=== PATIENT | female | born 1935 | race African-American/Black ===

== ENCOUNTER 2018-04-15 00:38 | Emergency (ER) | payer OTHER ==
[~2018-04-15] VITALS: Ht 157.5 cm; Wt 59.0 kg
[~2018-04-15 00:38] MED LIST: CARI-277; CLON1TAB4; GABA100C; ISOS20TA56; METO-158; MIRT30TA3; MYCO360T; NITR0.4S31 SL; NOR10T; OMEP20TA44 OR; PLAVIX PO; PRED5PAK8; RAMI5CAP40; RANI-226; SIMV40TA96; TACR5CAP3; TOLT4CAP12 OR; VALS40TA2 OR
[2018-04-15 01:10] LABS: Hemoglobin 8.3 g/dL (12.2-16.2)
[2018-04-15 01:12] LABS: Basophils # (auto) 0.1 uL; Basophils % (auto) 0.8 % (0.0-2.0); Eosinophils # (auto) 0.1 uL; Eosinophils % (auto) 0.6 % (0.0-7.0); Hematocrit 27.3 % (36.0-46.0); Lymphocytes # (auto) 2.3 uL; Mean Corpuscular Hemoglobin 27.7 pg (28.0-32.0); Mean Corpuscular Hgb Conc. 30.3 g/dL (32.0-36.0); Mean Corpuscular Volume 91.5 fL (80.0-100.0); Monocytes % (auto) 10.7 % (0.0-12.0); Neutrophils # (auto) 6.1 uL; Neutrophils % (auto) 63.9 % (37.0-80.0); Platelet Count (auto) 269 10^3/uL (140-450); Red Blood Cells 2.99 10^6/uL (4.0-5.20); Red Cell Distribution Width 19.5 % (11.8-14.3); White Blood Cell 9.5 10^3/uL (4.4-10.8)
[2018-04-15 01:24] LABS: INR 1.07 (0.9-1.15); Partial Thromboplastin Time 21.7 sec (23.78-33.04); Prothrombin Time 11.4 sec (9.27-12.13)
[2018-04-15 01:27] LABS: Alanine Aminotransferase 10 U/L (13-56); Albumin 3.3 g/dL (3.4-5.0); Anion Gap 12 (5-15); Aspartate Aminotransferase 11 U/L (15-37); Blood Alcohol < 3.0 mg/dL (0-5); Blood Urea Nitrogen 61 mg/dL (7-18); Calcium 9.6 mg/dL (8.5-10.1); Carbon Dioxide 21 mmol/L (21-32); Chloride 119 mmol/L (98-107); GFR African American 13 mL/min; GFR Non-African American 11 mL/min; Glucose 86 mg/dL (74-106); Potassium 4.5 mmol/L (3.5-5.1); Sodium 152 mmol/L (136-145)
[2018-04-15 01:29] LABS: Alkaline Phosphatase 51 U/L (45-117); Bilirubin, Total 0.4 mg/dL (0.2-1.0)
[2018-04-15 02:37] LABS: Urine Bacteria MANY /hpf (None Seen); Urine Blood 1+ /uL (Negative); Urine Mucus FEW (None Seen); Urine WBC 935 /hpf (0 - 5); Urine WBC Clumps PRESENT /hpf (None Seen)
[2018-04-15] MEDS ORDERED: cefTRIAXone 1GM/10ml IVPUSH 10 ML IV ONE (03:45)
[2018-04-15] MEDS ORDERED: SODIUM CHLORIDE 0.9% 1,000 ML IV ONE (03:45)
[2018-04-15 05:56] VITALS: BP 140/90
== END 2018-04-15 06:12 | disposition short-term general hospital (02) ==
LOC: EDBD 00:38 → ER 00:45
DX: R41.82 Altered mental status, unspecified (principal); N39.0 Urinary tract infection, site not specified; E86.0 Dehydration; D64.9 Anemia, unspecified; I12.9 Hypertensive chronic kidney disease with stage 1 through stage 4 chronic kidney disease, or unspecified chronic kidney disease; N18.9 Chronic kidney disease, unspecified; I25.810 Atherosclerosis of coronary artery bypass graft(s) without angina pectoris; Z90.49 Acquired absence of other specified parts of digestive tract
CPT/HCPCS: 36415; 36600; 51702; 70450; 71045; 80053; 80320; 81001; 82140; 82805; 83605; 83880; 85025; 85610; 85730; 86141; 93005; 96361; 96374; 99291; J0696

== ENCOUNTER 2020-10-18 15:19 | Inpatient (IN) | payer OTHER ==
[~2020-10-18] VITALS: Ht 160 cm; Wt 40.7 kg
[~2020-10-18 15:19] MED LIST changes: +CLON-853; -CLON1TAB4; +ISOS20TA5; -ISOS20TA56; +MIRT1TAB39; -MIRT30TA3; +SIMV40TA2; -SIMV40TA96; +TOLT4CAP OR; -TOLT4CAP12 OR
[2020-10-18] MEDS ORDERED: dilTIAZem 25 MG/5 ML VIAL IV ONE ×2 (15:27→15:30)
[2020-10-18] MEDS: dilTIAZem 125mg/125ml BAG KIT 100 ML IV SCH (15:35)
[2020-10-18 16:08] LABS: Basophils # (auto) 0 10 ^3/uL (0-0.2); Basophils % (auto) 0.4 % (0.0-2.0); Eosinophils # (auto) 0 10 ^3/uL (0-0.8); Eosinophils % (auto) 0.3 % (0.0-7.0); Hematocrit 30.2 % (36.0-46.0); Hemoglobin 9.7 g/dL (12.2-16.2); Lymphocytes # (auto) 0.9 10 ^3/uL (0.4-5.4); Lymphocytes % (auto) 10.2 % (10.0-50.0); Mean Corpuscular Hemoglobin 30.2 pg (28.0-32.0); Mean Corpuscular Hgb Conc. 32.2 g/dL (32.0-36.0); Mean Corpuscular Volume 93.8 fL (80.0-100.0); Monocytes # (auto) 0.2 10 ^3/uL (0-1.3); Neutrophils # (auto) 7.3 10 ^3/uL (1.6-8.6); Neutrophils % (auto) 87.1 % (37.0-80.0); Nucleated Red Blood Cells % 0.1 %; Red Blood Cells 3.22 10^6/uL (4.0-5.20); Red Cell Distribution Width 18.8 % (11.8-14.3); White Blood Cell 8.4 10^3/uL (4.4-10.8)
[2020-10-18 16:28] LABS: Albumin 2.9 g/dL (3.4-5.0); Calcium 7.7 mg/dL (8.5-10.1); Magnesium 1.9 mg/dL (1.6-2.6); Potassium 3.7 mmol/L (3.5-5.1)
[2020-10-18 16:33] LABS: Bilirubin, Total 0.8 mg/dL (0.2-1.0); Total Protein 7.5 g/dL (6.4-8.2)
[2020-10-18] MEDS ORDERED: AMIODARONE HCL 150 MG in D5W 5% 100 ML IV ONE (17:30)
[2020-10-18] MEDS ORDERED: DIGOXIN 0.25 MG TAB PO ONE (17:30)
[2020-10-18] MEDS ORDERED: AMIODARONE 450mg/250ml AE 250 ML IV SCH (17:45)
[2020-10-18] MEDS ORDERED: ENOXAPARIN SOD 80 MG/0.8ML SYRINGE SC ONE (17:45)
[2020-10-18] MEDS ORDERED: NITROGLYCERIN 0.4 MG SL TAB SL PRN (18:00)
[2020-10-18] MEDS ORDERED: diphenhdrAMINE HCL 50 MG/1 ML VL IV PRN (18:00)
[2020-10-18] MEDS ORDERED: ALBUTEROL SULF HFA 90MCG INH 200DOSE IN PRN (18:00)
[2020-10-18] MEDS ORDERED: MORPHINE SULFATE INJECTION 2 MG/ML SYRG IV PRN (18:00)
[2020-10-18] MEDS ORDERED: LACTULOSE 20Gm/30ML SOLN PO PRN (18:30)
[2020-10-18] MEDS ORDERED: levoFLOXacin 250MG 50 ML IV ONE (18:30)
[2020-10-18] MEDS ORDERED: ACETAMINOPHEN 500 MG TAB PO PRN (18:30)
[2020-10-18] MEDS ORDERED: ONDANSETRON HCL 4 MG/2 ML VIAL IV PRN (18:30)
[2020-10-18] MEDS ORDERED: VANCOMYCIN PER PHARMACY 0 MG IV SCH (18:30)
[2020-10-18 19:06] VITALS: BP 117/53
[2020-10-18] MEDS ORDERED: VANCOMYCIN 750mg/250ml 250 ML IV ONE (19:30)
[2020-10-18] MEDS: SODIUM CHLOR 0.9% PF (SALINE LOCK) 10ML VIAL/SYR IV SCH (21:23)
[2020-10-18] MEDS: METOPROLOL TARTRATE 25 MG TAB PO SCH (21:38)
[2020-10-18] MEDS: ATORVASTATIN 20 MG TAB PO SCH (21:38)
[2020-10-18] MEDS: FLORASTOR (S. BOULARDII) 250 MG CAP PO SCH (21:38)
[2020-10-18] MEDS: FAMOTIDINE (10MG/ML) 2ML VL IV SCH (21:38)
[2020-10-18] MEDS ORDERED: BUDESONIDE (INHALATION) 180 MCG IH IN SCH (22:00)
[2020-10-18 22:47] VITALS: BP 113/73
[2020-10-19] VITALS (10 sets, daily range): BP systolic 98–107; BP diastolic 57–71
[2020-10-19] MEDS: SODIUM CHLOR 0.9% PF (SALINE LOCK) 10ML VIAL/SYR IV SCH ×3 (05:35→22:18)
[2020-10-19 06:38] LABS: Basophils # (auto) 0 10 ^3/uL (0-0.2); Basophils % (auto) 0.4 % (0.0-2.0); Eosinophils # (auto) 0 10 ^3/uL (0-0.8); Eosinophils % (auto) 0.2 % (0.0-7.0); Hematocrit 27.9 % (36.0-46.0); Lymphocytes # (auto) 1.1 10 ^3/uL (0.4-5.4); Lymphocytes % (auto) 15.6 % (10.0-50.0); Mean Corpuscular Hemoglobin 29.9 pg (28.0-32.0); Mean Corpuscular Volume 93.2 fL (80.0-100.0); Monocytes # (auto) 0.3 10 ^3/uL (0-1.3); Monocytes % (auto) 4.2 % (0.0-12.0); Neutrophils # (auto) 5.8 10 ^3/uL (1.6-8.6); Neutrophils % (auto) 79.6 % (37.0-80.0); Nucleated Red Blood Cells % 0.2 %; White Blood Cell 7.3 10^3/uL (4.4-10.8)
[2020-10-19] MEDS ORDERED: IVERMECTIN 3 MG TAB PO ONE (07:00)
[2020-10-19 07:07] LABS: Albumin 2.6 g/dL (3.4-5.0); Calcium 6.8 mg/dL (8.5-10.1); Potassium 3.9 mmol/L (3.5-5.1)
[2020-10-19 07:11] LABS: BUN/Creatinine Ratio 3.6; Bilirubin, Total 0.6 mg/dL (0.2-1.0); Total Protein 6.8 g/dL (6.4-8.2)
[2020-10-19] MEDS: levoFLOXacin 250MG 50 ML IV SCH (09:00)
[2020-10-19] MEDS: dilTIAZem 125mg/125ml BAG KIT 100 ML IV SCH (09:20)
[2020-10-19] MEDS: METOPROLOL TARTRATE 25 MG TAB PO SCH ×2 (09:46→22:00)
[2020-10-19] MEDS: NITROGLYCERIN 0.2MG/HR TOPICAL PATCH TD SCH (09:47)
[2020-10-19] MEDS: ASPirin 81 mg TAB PO SCH (10:00)
[2020-10-19] MEDS: FLORASTOR (S. BOULARDII) 250 MG CAP PO SCH ×2 (10:00→22:00)
[2020-10-19] MEDS: ZINC SULFATE 220mg CAP or TAB PO SCH (10:00)
[2020-10-19] MEDS: ASCORBIC ACID 1,000 MG TAB PO SCH (10:00)
[2020-10-19] MEDS: CHOLECALCIFEROL (VITD3) 2,000 UNIT CAP/TAB PO SCH (10:00)
[2020-10-19] MEDS: ENOXAPARIN SOD 40 MG/0.4 ML SYRINGE SC SCH (10:12)
[2020-10-19] MEDS: DexAMETHasone SOD PHOS 10MG/1ML VIAL INJ IV SCH (10:12)
[2020-10-19 13:36] LABS: INR 1.1 (0.9-1.15)
[2020-10-19] MEDS ORDERED: FUROSEMIDE 40 MG/4 ML VIAL IV ONE (14:00)
[2020-10-19] MEDS: FUROSEMIDE 40 MG/4 ML VIAL IV SCH (18:00)
[2020-10-19] MEDS ORDERED: WARFARIN SODIUM 2 MG TAB PO ONE (20:00)
[2020-10-19] MEDS: ATORVASTATIN 20 MG TAB PO SCH (22:00)
[2020-10-19] MEDS: FAMOTIDINE (10MG/ML) 2ML VL IV SCH (22:00)
[2020-10-19] MEDS: BUDESONIDE (INHALATION) 0.5 MG/2 ML NEB NEB SCH (22:25)
[2020-10-19] MEDS: ALBUTEROL SULF 2.5 MG/0.5ML(0.5%) NEB SOLN NEB PRN (22:25)
[2020-10-20] MEDS: FUROSEMIDE 40 MG/4 ML VIAL IV SCH ×2 (06:00→18:09)
[2020-10-20] MEDS: SODIUM CHLOR 0.9% PF (SALINE LOCK) 10ML VIAL/SYR IV SCH ×2 (06:00→18:07)
[2020-10-20 06:32] LABS: Basophils # (auto) 0 10 ^3/uL (0-0.2); Basophils % (auto) 0.5 % (0.0-2.0); Eosinophils # (auto) 0 10 ^3/uL (0-0.8); Hematocrit 27.8 % (36.0-46.0); Hemoglobin 8.9 g/dL (12.2-16.2); Lymphocytes # (auto) 0.8 10 ^3/uL (0.4-5.4); Lymphocytes % (auto) 12.8 % (10.0-50.0); Mean Corpuscular Hgb Conc. 32.1 g/dL (32.0-36.0); Mean Corpuscular Volume 93.5 fL (80.0-100.0); Monocytes # (auto) 0.4 10 ^3/uL (0-1.3); Neutrophils # (auto) 5.2 10 ^3/uL (1.6-8.6); Neutrophils % (auto) 80.7 % (37.0-80.0); Nucleated Red Blood Cells % 0.2 %; Red Blood Cells 2.98 10^6/uL (4.0-5.20); Red Cell Distribution Width 18.7 % (11.8-14.3); White Blood Cell 6.4 10^3/uL (4.4-10.8)
[2020-10-20 06:40] LABS: INR 1.06 (0.9-1.15)
[2020-10-20 06:44] LABS: Potassium 4.5 mmol/L (3.5-5.1)
[2020-10-20 06:46] LABS: BUN/Creatinine Ratio 5.1
[2020-10-20] MEDS: dilTIAZem 125mg/125ml BAG KIT 100 ML IV SCH (07:30)
[2020-10-20] MEDS: ZINC SULFATE 220mg CAP or TAB PO SCH (09:27)
[2020-10-20] MEDS: ASPirin 81 mg TAB PO SCH (09:27)
[2020-10-20] MEDS: DexAMETHasone SOD PHOS 10MG/1ML VIAL INJ IV SCH (09:27)
[2020-10-20] MEDS: METOPROLOL TARTRATE 25 MG TAB PO SCH ×2 (09:27→22:00)
[2020-10-20] MEDS: FLORASTOR (S. BOULARDII) 250 MG CAP PO SCH ×2 (09:27→22:00)
[2020-10-20] MEDS: CHOLECALCIFEROL (VITD3) 2,000 UNIT CAP/TAB PO SCH (09:28)
[2020-10-20] MEDS: ASCORBIC ACID 1,000 MG TAB PO SCH (09:28)
[2020-10-20] MEDS: ENOXAPARIN SOD 40 MG/0.4 ML SYRINGE SC SCH (09:28)
[2020-10-20] MEDS: BUDESONIDE (INHALATION) 0.5 MG/2 ML NEB NEB SCH ×2 (09:44→22:00)
[2020-10-20] MEDS: NITROGLYCERIN 0.2MG/HR TOPICAL PATCH TD SCH (09:54)
[2020-10-20 13:46] VITALS: BP 107/66
[2020-10-20 17:00] VITALS: BP 126/75
[2020-10-20] MEDS ORDERED: WARFARIN SODIUM 2.5 MG TAB PO ONE (17:00)
[2020-10-20 22:00] VITALS: BP 123/97
[2020-10-20] MEDS: ATORVASTATIN 20 MG TAB PO SCH (22:00)
[2020-10-21] MEDS: FAMOTIDINE (10MG/ML) 2ML VL IV SCH ×2 (01:27→22:00)
[2020-10-21] MEDS: SODIUM CHLOR 0.9% PF (SALINE LOCK) 10ML VIAL/SYR IV SCH ×4 (01:27→22:00)
[2020-10-21] MEDS: dilTIAZem 125mg/125ml BAG KIT 100 ML IV SCH (03:30)
[2020-10-21 05:00] VITALS: BP 140/77
[2020-10-21] MEDS: FUROSEMIDE 40 MG/4 ML VIAL IV SCH ×2 (06:00→17:37)
[2020-10-21] MEDS: BUDESONIDE (INHALATION) 0.5 MG/2 ML NEB NEB SCH ×2 (06:00→22:00)
[2020-10-21] MEDS ORDERED: HALOPERIDOL LACTATE 5 MG/ML INJ VIAL IM ONE (09:45)
[2020-10-21] MEDS: ASCORBIC ACID 1,000 MG TAB PO SCH (10:00)
[2020-10-21] MEDS: FLORASTOR (S. BOULARDII) 250 MG CAP PO SCH ×2 (10:00→22:00)
[2020-10-21] MEDS: ASPirin 81 mg TAB PO SCH (10:00)
[2020-10-21] MEDS: METOPROLOL TARTRATE 25 MG TAB PO SCH ×2 (10:00→22:00)
[2020-10-21] MEDS: CHOLECALCIFEROL (VITD3) 2,000 UNIT CAP/TAB PO SCH (10:00)
[2020-10-21] MEDS ORDERED: ENOXAPARIN SOD 40 MG/0.4 ML SYRINGE SC SCH (10:00)
[2020-10-21] MEDS: ZINC SULFATE 220mg CAP or TAB PO SCH (10:00)
[2020-10-21] MEDS: NITROGLYCERIN 0.2MG/HR TOPICAL PATCH TD SCH (10:00)
[2020-10-21] MEDS: DexAMETHasone SOD PHOS 10MG/1ML VIAL INJ IV SCH (10:17)
[2020-10-21] MEDS: levoFLOXacin 250MG 50 ML IV SCH (10:17)
[2020-10-21] MEDS: ENOXAPARIN SOD 40 MG/0.4 ML SYRINGE SC SCH (10:20)
[2020-10-21 15:28] LABS: INR 1.51 (0.9-1.15); Partial Thromboplastin Time 43.9 sec (23.0-31.2)
[2020-10-21 16:50] VITALS: BP 138/72
[2020-10-21] MEDS ORDERED: WARFARIN SODIUM 2 MG TAB PO ONE (17:00)
[2020-10-21] MEDS: traMADol HCL 50 MG TAB PO PRN (19:00)
[2020-10-21 22:00] VITALS: BP 130/70
[2020-10-21] MEDS: ATORVASTATIN 20 MG TAB PO SCH (22:00)
[2020-10-22] MEDS: traMADol HCL 50 MG TAB PO PRN ×2 (00:23→03:28)
[2020-10-22 01:06] VITALS: BP 130/70
[2020-10-22 04:55] VITALS: BP 151/107
[2020-10-22] MEDS: FUROSEMIDE 40 MG/4 ML VIAL IV SCH ×2 (05:41→18:16)
[2020-10-22] MEDS: SODIUM CHLOR 0.9% PF (SALINE LOCK) 10ML VIAL/SYR IV SCH ×3 (05:41→22:00)
[2020-10-22] MEDS ORDERED: SODIUM CHL 0.9% 1000 ML BAG XX ONE (07:00)
[2020-10-22 09:00] VITALS: BP 149/89
[2020-10-22] MEDS: ALBUTEROL SULF 2.5 MG/0.5ML(0.5%) NEB SOLN NEB PRN ×2 (09:50→19:52)
[2020-10-22] MEDS: BUDESONIDE (INHALATION) 0.5 MG/2 ML NEB NEB SCH ×2 (09:50→19:53)
[2020-10-22] MEDS: ENOXAPARIN SOD 40 MG/0.4 ML SYRINGE SC SCH ×2 (10:00→11:03)
[2020-10-22] MEDS: DexAMETHasone SOD PHOS 10MG/1ML VIAL INJ IV SCH (11:00)
[2020-10-22] MEDS: ZINC SULFATE 220mg CAP or TAB PO SCH (11:01)
[2020-10-22] MEDS: ASCORBIC ACID 1,000 MG TAB PO SCH (11:01)
[2020-10-22] MEDS: FLORASTOR (S. BOULARDII) 250 MG CAP PO SCH ×2 (11:01→22:00)
[2020-10-22] MEDS: ASPirin 81 mg TAB PO SCH (11:01)
[2020-10-22] MEDS: METOPROLOL TARTRATE 25 MG TAB PO SCH ×2 (11:01→22:00)
[2020-10-22] MEDS: NITROGLYCERIN 0.2MG/HR TOPICAL PATCH TD SCH (11:02)
[2020-10-22] MEDS: CHOLECALCIFEROL (VITD3) 2,000 UNIT CAP/TAB PO SCH (11:02)
[2020-10-22 13:00] VITALS: BP 145/86
[2020-10-22 14:25] LABS: INR 2.49 (0.9-1.15)
[2020-10-22 16:52] VITALS: BP 141/85
[2020-10-22] MEDS ORDERED: EPOETIN ALFA 4,000 UNIT/ML VL SC ONE (21:00)
[2020-10-22 22:00] VITALS: BP 144/78
[2020-10-22] MEDS: ATORVASTATIN 20 MG TAB PO SCH (22:00)
[2020-10-23 05:00] VITALS: BP 130/61
[2020-10-23] MEDS: SODIUM CHLOR 0.9% PF (SALINE LOCK) 10ML VIAL/SYR IV SCH ×3 (06:00→22:00)
[2020-10-23] MEDS: FUROSEMIDE 40 MG/4 ML VIAL IV SCH ×2 (06:00→17:38)
[2020-10-23] MEDS: BUDESONIDE (INHALATION) 0.5 MG/2 ML NEB NEB SCH ×2 (06:20→18:31)
[2020-10-23 06:53] LABS: Basophils # (auto) 0 10 ^3/uL (0-0.2); Basophils % (auto) 0.1 % (0.0-2.0); Eosinophils # (auto) 0 10 ^3/uL (0-0.8); Hematocrit 27.1 % (36.0-46.0); Hemoglobin 8.7 g/dL (12.2-16.2); Lymphocytes # (auto) 0.5 10 ^3/uL (0.4-5.4); Lymphocytes % (auto) 9.3 % (10.0-50.0); Mean Corpuscular Hemoglobin 30.1 pg (28.0-32.0); Monocytes # (auto) 0.4 10 ^3/uL (0-1.3); Neutrophils # (auto) 4.9 10 ^3/uL (1.6-8.6); Neutrophils % (auto) 83.6 % (37.0-80.0); Nucleated Red Blood Cells % 0.5 %; Red Blood Cells 2.89 10^6/uL (4.0-5.20); Red Cell Distribution Width 18.8 % (11.8-14.3); White Blood Cell 5.9 10^3/uL (4.4-10.8)
[2020-10-23 07:04] LABS: Albumin 2.6 g/dL (3.4-5.0)
[2020-10-23 07:11] LABS: INR 2.6 (0.9-1.15)
[2020-10-23 09:00] VITALS: BP 149/80
[2020-10-23] MEDS: levoFLOXacin 250MG 50 ML IV SCH (09:00)
[2020-10-23] MEDS: ZINC SULFATE 220mg CAP or TAB PO SCH (10:00)
[2020-10-23] MEDS: ASPirin 81 mg TAB PO SCH (10:00)
[2020-10-23] MEDS: DexAMETHasone SOD PHOS 10MG/1ML VIAL INJ IV SCH (10:00)
[2020-10-23] MEDS: ASCORBIC ACID 1,000 MG TAB PO SCH (10:00)
[2020-10-23] MEDS: CHOLECALCIFEROL (VITD3) 2,000 UNIT CAP/TAB PO SCH (10:00)
[2020-10-23] MEDS ORDERED: SODIUM CHL 0.9% 1000 ML BAG XX ONE (10:30)
[2020-10-23 13:00] VITALS: BP 147/99
[2020-10-23] MEDS: NITROGLYCERIN 0.2MG/HR TOPICAL PATCH TD SCH (15:00)
[2020-10-23] MEDS: FLORASTOR (S. BOULARDII) 250 MG CAP PO SCH ×2 (15:00→22:00)
[2020-10-23] MEDS: METOPROLOL TARTRATE 25 MG TAB PO SCH ×2 (15:00→22:00)
[2020-10-23 16:58] VITALS: BP 155/96
[2020-10-23] MEDS: ALBUTEROL SULF 2.5 MG/0.5ML(0.5%) NEB SOLN NEB PRN (18:30)
[2020-10-23 20:20] VITALS: BP 139/79
[2020-10-23] MEDS ORDERED: EPOETIN ALFA 10,000 UNIT/1 ML VIAL SC ONE (21:00)
[2020-10-23] MEDS ORDERED: FAMOTIDINE (10MG/ML) 2ML VL IV SCH (22:00)
[2020-10-23] MEDS: ATORVASTATIN 20 MG TAB PO SCH (22:00)
[2020-10-24 05:00] VITALS: BP 156/98
[2020-10-24] MEDS: FUROSEMIDE 40 MG/4 ML VIAL IV SCH (06:27)
[2020-10-24] MEDS: SODIUM CHLOR 0.9% PF (SALINE LOCK) 10ML VIAL/SYR IV SCH ×3 (06:27→20:45)
[2020-10-24] MEDS: traMADol HCL 50 MG TAB PO PRN (06:30)
[2020-10-24] MEDS: BUDESONIDE (INHALATION) 0.5 MG/2 ML NEB NEB SCH ×2 (06:58→19:06)
[2020-10-24 08:54] VITALS: BP 145/85
[2020-10-24 10:31] LABS: Basophils # (auto) 0 10 ^3/uL (0-0.2); Eosinophils # (auto) 0 10 ^3/uL (0-0.8); Eosinophils % (auto) 0.4 % (0.0-7.0); Hemoglobin 8.4 g/dL (12.2-16.2); Lymphocytes # (auto) 0.5 10 ^3/uL (0.4-5.4); Monocytes # (auto) 0.4 10 ^3/uL (0-1.3)
[2020-10-24 10:33] LABS: Basophils % (auto) 0.2 % (0.0-2.0); Lymphocytes % (auto) 6.9 % (10.0-50.0); Mean Corpuscular Hemoglobin 30.1 pg (28.0-32.0); Mean Corpuscular Hgb Conc. 32.3 g/dL (32.0-36.0); Mean Corpuscular Volume 93.3 fL (80.0-100.0); Monocytes % (auto) 4.7 % (0.0-12.0); Neutrophils # (auto) 6.7 10 ^3/uL (1.6-8.6); Neutrophils % (auto) 87.8 % (37.0-80.0); Nucleated Red Blood Cells % 0.4 %; Red Blood Cells 2.78 10^6/uL (4.0-5.20); Red Cell Distribution Width 18.6 % (11.8-14.3); White Blood Cell 7.7 10^3/uL (4.4-10.8)
[2020-10-24 10:41] LABS: Albumin 2.5 g/dL (3.4-5.0)
[2020-10-24] MEDS ORDERED: DexAMETHasone SOD PHOS 10MG/1ML VIAL INJ PO SCH (11:15)
[2020-10-24 11:40] LABS: INR 2.3 (0.9-1.15)
[2020-10-24] MEDS: ZINC SULFATE 220mg CAP or TAB PO SCH (12:06)
[2020-10-24] MEDS: ASPirin 81 mg TAB PO SCH (12:06)
[2020-10-24] MEDS: FLORASTOR (S. BOULARDII) 250 MG CAP PO SCH ×2 (12:06→22:00)
[2020-10-24] MEDS: CHOLECALCIFEROL (VITD3) 2,000 UNIT CAP/TAB PO SCH (12:07)
[2020-10-24] MEDS: METOPROLOL TARTRATE 25 MG TAB PO SCH ×2 (12:07→22:00)
[2020-10-24] MEDS: ASCORBIC ACID 1,000 MG TAB PO SCH (12:07)
[2020-10-24] MEDS: NITROGLYCERIN 0.2MG/HR TOPICAL PATCH TD SCH (12:08)
[2020-10-24 12:30] LABS: Hepatitis A Ab IgM Negative; Hepatitis B Core IgM Negative
[2020-10-24 12:31] LABS: Hepatitis B Surface Antigen Negative (Negative); Hepatitis C Antibody Negative (Negative)
[2020-10-24 13:00] VITALS: BP 153/97
[2020-10-24 16:32] VITALS: BP 142/83
[2020-10-24] MEDS ORDERED: WARFARIN SODIUM 1 MG TAB PO ONE (17:00)
[2020-10-24] MEDS: FUROSEMIDE 40 MG TAB PO SCH (17:25)
[2020-10-24 20:29] VITALS: BP 142/83
[2020-10-24 21:48] VITALS: BP 159/113
[2020-10-24] MEDS: ATORVASTATIN 20 MG TAB PO SCH (22:00)
[2020-10-25 05:06] VITALS: BP 146/74
[2020-10-25] MEDS: SODIUM CHLOR 0.9% PF (SALINE LOCK) 10ML VIAL/SYR IV SCH ×2 (05:47→13:33)
[2020-10-25] MEDS: FUROSEMIDE 40 MG TAB PO SCH ×2 (06:00→18:08)
[2020-10-25 06:19] LABS: INR 2.08 (0.9-1.15); Partial Thromboplastin Time 39.5 sec (23.0-31.2)
[2020-10-25] MEDS: BUDESONIDE (INHALATION) 0.5 MG/2 ML NEB NEB SCH (07:05)
[2020-10-25 09:00] VITALS: BP 141/88
[2020-10-25] MEDS: levoFLOXacin 250MG 50 ML IV SCH (09:00)
[2020-10-25] MEDS ORDERED: DexAMETHasone 4 MG TAB PO SCH (10:00)
[2020-10-25] MEDS: ASPirin 81 mg TAB PO SCH (12:00)
[2020-10-25] MEDS: FLORASTOR (S. BOULARDII) 250 MG CAP PO SCH (12:00)
[2020-10-25] MEDS: ASCORBIC ACID 1,000 MG TAB PO SCH (12:00)
[2020-10-25] MEDS: METOPROLOL TARTRATE 25 MG TAB PO SCH (12:00)
[2020-10-25] MEDS: NITROGLYCERIN 0.2MG/HR TOPICAL PATCH TD SCH (12:00)
[2020-10-25] MEDS: ZINC SULFATE 220mg CAP or TAB PO SCH (12:00)
[2020-10-25] MEDS: CHOLECALCIFEROL (VITD3) 2,000 UNIT CAP/TAB PO SCH (12:00)
[2020-10-25 12:02] VITALS: BP 153/88
[2020-10-25 17:00] VITALS: BP 151/84
[2020-10-25] MEDS ORDERED: WARFARIN SODIUM 1 MG TAB PO ONE (17:00)
[2020-10-25 17:27] VITALS: BP 146/88
== END 2020-10-25 20:05 | disposition home health service (06) | DRG 177 ==
LOC: ER 15:19 → EDBD 15:19 → TELE 15:20 → TELE-WESTW 10-20 13:31
PROVIDERS: ADMIT Internal Medicine; ATTEND Internal Medicine
PROC: 5A09357 Assistance with Respiratory Ventilation, Less than 24 Consecutive Hours, Continuous Positive Airway Pressure (ICD-10-PCS; 2020-10-18)
PROC: XW13325 Transfusion of Convalescent Plasma (Nonautologous) into Peripheral Vein, Percutaneous Approach, New Technology Group 5 (ICD-10-PCS; principal; 2020-10-19)
PROC: 5A1D70Z Performance of Urinary Filtration, Intermittent, Less than 6 Hours Per Day (ICD-10-PCS; 2020-10-21)
PROC: 5A1D70Z Performance of Urinary Filtration, Intermittent, Less than 6 Hours Per Day (ICD-10-PCS; 2020-10-23)
PROC: 5A1D70Z Performance of Urinary Filtration, Intermittent, Less than 6 Hours Per Day (ICD-10-PCS; 2020-10-25)
DX: U07.1 COVID-19 (principal); J12.82 Pneumonia due to coronavirus disease 2019; N18.6 End stage renal disease; J96.01 Acute respiratory failure with hypoxia; I21.A1 Myocardial infarction type 2; J98.11 Atelectasis; E87.1 Hypo-osmolality and hyponatremia; I13.2 Hypertensive heart and chronic kidney disease with heart failure and with stage 5 chronic kidney disease, or end stage renal disease; J44.0 Chronic obstructive pulmonary disease with (acute) lower respiratory infection; I48.0 Paroxysmal atrial fibrillation; E78.5 Hyperlipidemia, unspecified; G89.29 Other chronic pain; D63.1 Anemia in chronic kidney disease; E11.22 Type 2 diabetes mellitus with diabetic chronic kidney disease; F03.90 Unspecified dementia, unspecified severity, without behavioral disturbance, psychotic disturbance, mood disturbance, and anxiety; I25.10 Atherosclerotic heart disease of native coronary artery without angina pectoris; Z99.2 Dependence on renal dialysis; Z79.01 Long term (current) use of anticoagulants; Z79.4 Long term (current) use of insulin; Z79.899 Other long term (current) drug therapy; Z82.49 Family history of ischemic heart disease and other diseases of the circulatory system; Z91.19 Patient's noncompliance with other medical treatment and regimen; Z95.1 Presence of aortocoronary bypass graft; Z98.61 Coronary angioplasty status; I50.9 Heart failure, unspecified
CPT/HCPCS: 36415; 36600; 51702; 71045; 76775; 80048; 80053; 80074; 80202; 82040; 82550; 82565; 82805; 83735; 83880; 84484; 85025; 85610; 85652; 85730; 86141; 86850; 86900; 86901; 87040; 87081; 87426; 90935; 93005; 93306; 94640; 94660; 96365; 99291; G0378; J0885; J1100; J1642; J2405; J3490; J7060

== ENCOUNTER 2021-07-12 09:47 | Inpatient (IN) | payer OTHER ==
[~2021-07-12] VITALS: Ht 162.6 cm; Wt 42.5 kg
[~2021-07-12 09:47] MED LIST changes: -GABA100C; -ISOS20TA5; -METO-158; -NOR10T; -OMEP20TA44 OR; -PLAVIX PO; -RANI-226; -SIMV40TA2; -TOLT4CAP OR; -VALS40TA2 OR
[2021-07-12 11:43] LABS: Basophils # (auto) 0 10 ^3/uL (0-0.2); Basophils % (auto) 0.3 % (0.0-2.0); Eosinophils # (auto) 0.1 10 ^3/uL (0-0.8); Eosinophils % (auto) 1.6 % (0.0-7.0); Hematocrit 33.3 % (36.0-46.0); Hemoglobin 10.5 g/dL (12.2-16.2); Lymphocytes # (auto) 1.3 10 ^3/uL (0.4-5.4); Lymphocytes % (auto) 22.9 % (10.0-50.0); Mean Corpuscular Hemoglobin 29.8 pg (28.0-32.0); Mean Corpuscular Hgb Conc. 31.5 g/dL (32.0-36.0); Mean Corpuscular Volume 94.6 fL (80.0-100.0); Monocytes # (auto) 0.5 10 ^3/uL (0-1.3); Monocytes % (auto) 9.9 % (0.0-12.0); Neutrophils # (auto) 3.6 10 ^3/uL (1.6-8.6); Neutrophils % (auto) 65.3 % (37.0-80.0); Nucleated Red Blood Cells % 0.2 %; Red Blood Cells 3.52 10^6/uL (4.0-5.20); Red Cell Distribution Width 17.6 % (11.8-14.3); White Blood Cell 5.5 10^3/uL (4.4-10.8)
[2021-07-12] MEDS ORDERED: ONDANSETRON HCL 4 MG/2 ML VIAL IV ONE (12:30)
[2021-07-12] MEDS ORDERED: SODIUM CHLORIDE 0.9% 1,000 ML IV ONE (12:30)
[2021-07-12] MEDS ORDERED: MORPHINE SULFATE INJECTION 2 MG/ML SYRG IV ONE (12:30)
[2021-07-12 15:26] LABS: INR 1.4 (0.9-1.15); Partial Thromboplastin Time 38.2 sec (23.6-33.0)
[2021-07-12 16:33] LABS: Albumin 2.5 g/dL (3.4-5.0); BUN/Creatinine Ratio 9.5; Bilirubin, Total 0.6 mg/dL (0.2-1.0); Calcium 8.3 mg/dL (8.5-10.1); Total Protein 8.3 g/dL (6.4-8.2)
[2021-07-12 16:34] LABS: Potassium 7.6 mmol/L (3.5-5.1)
[2021-07-12] MEDS ORDERED: DEXTROSE (50%) 50ML SYRG IV ONE ×2 (16:45→18:15)
[2021-07-12] MEDS ORDERED: ALBUTEROL SULF 2.5 MG/0.5ML(0.5%) NEB SOLN NEB ONE ×2 (16:45→18:15)
[2021-07-12] MEDS ORDERED: SODIUM BICARBONATE 8.4 % INJ 50ML VIAL IV ONE (16:45)
[2021-07-12] MEDS ORDERED: CALCIUM CHL 100MG/ML 1,000 MG in D5W 5% 100 ML IV ONE ×2 (16:45→18:15)
[2021-07-12] MEDS ORDERED: InsuLIN REG 1unit/0.01ml Soln (100units/ml) IV ONE ×2 (16:45→18:15)
[2021-07-12] MEDS ORDERED: SODIUM ZIRCONIUM CYCL 10 GM PAK PO ONE ×2 (16:45→18:15)
[2021-07-12] MEDS ORDERED: MORPHINE SULFATE INJECTION 2 MG/ML SYRG IV PRN ×3 (18:15→19:15)
[2021-07-12] MEDS ORDERED: FUROSEMIDE 40 MG/4 ML VIAL IV ONE (18:15)
[2021-07-12] MEDS ORDERED: NITROGLYCERIN 0.4 MG SL TAB SL PRN ×2 (18:15→19:15)
[2021-07-12] MEDS ORDERED: SODIUM BICARBONATE 8.4% INJ 50ML SYRINGE IV ONE (18:15)
[2021-07-12] MEDS ORDERED: ISOSORBIDE MONONITRATE IR 20 MG TAB PO ONE (19:15)
[2021-07-12] MEDS ORDERED: LORazepam 0.5 MG TAB PO PRN (19:15)
[2021-07-12] MEDS ORDERED: METOCLOPRAMIDE HCL 5MG/ml INJ 2ml VIAL IV PRN (19:15)
[2021-07-12] MEDS ORDERED: METOPROLOL SUCCINATE XL 50 MG TAB PO ONE (19:15)
[2021-07-12] MEDS ORDERED: HYDROcodone-ACET 5/325MG TAB PO PRN (19:15)
[2021-07-12] MEDS ORDERED: ACETAMINOPHEN 325 MG TAB PO PRN (19:15)
[2021-07-12] MEDS ORDERED: DOCUSATE SOD 100 MG CAP PO PRN (19:15)
[2021-07-12] MEDS ORDERED: ALUM & MAG HYDROX-SIMETH LIQ(MAALOX) 30 ML PO PRN (19:15)
[2021-07-12] MEDS ORDERED: FAMOTIDINE (10MG/ML) 2ML VL IV ONE (19:30)
[2021-07-12 20:42] LABS: Potassium 6.3 mmol/L (3.5-5.1)
[2021-07-12] MEDS ORDERED: CALCIUM CHL(10%) 100MG/ML 10ML VIAL IV ONE (20:44)
[2021-07-12] MEDS ORDERED: IPRATROPIUM BROM 0.5 MG/2.5ML INH SOL NEB SCH (22:00)
[2021-07-12] MEDS ORDERED: ALBUTEROL SULF 2.5 MG/0.5ML(0.5%) NEB SOLN NEB SCH (22:00)
[2021-07-12] MEDS ORDERED: HEPARIN SODIUM (PORCINE) 5000 UNITS/ML 1ML VIAL ONE (22:26)
[2021-07-12 23:07] LABS: Basophils # (auto) 0.1 10 ^3/uL (0-0.2); Basophils % (auto) 2.4 % (0.0-2.0); Eosinophils # (auto) 0.2 10 ^3/uL (0-0.8); Eosinophils % (auto) 4.1 % (0.0-7.0); Hematocrit 30.7 % (36.0-46.0); Hemoglobin 9.7 g/dL (12.2-16.2); Lymphocytes # (auto) 0.8 10 ^3/uL (0.4-5.4); Lymphocytes % (auto) 16.6 % (10.0-50.0); Mean Corpuscular Hemoglobin 29.3 pg (28.0-32.0); Mean Corpuscular Hgb Conc. 31.8 g/dL (32.0-36.0); Mean Corpuscular Volume 92.1 fL (80.0-100.0); Monocytes # (auto) 0.6 10 ^3/uL (0-1.3); Monocytes % (auto) 12.9 % (0.0-12.0); Neutrophils # (auto) 3.2 10 ^3/uL (1.6-8.6); Nucleated Red Blood Cells % 0.3 %; Red Blood Cells 3.33 10^6/uL (4.0-5.20); Red Cell Distribution Width 17.5 % (11.8-14.3)
[2021-07-12 23:26] LABS: BUN/Creatinine Ratio 9.3; Potassium 4.2 mmol/L (3.5-5.1)
[2021-07-13] MEDS: SODIUM ZIRCONIUM CYCL 10 GM PAK PO SCH ×4 (00:01→23:10)
[2021-07-13] MEDS: APIXABAN 2.5 MG TAB PO SCH ×3 (00:01→23:10)
[2021-07-13] MEDS: ATORVASTATIN 20 MG TAB PO SCH ×2 (00:01→23:10)
[2021-07-13 00:33] VITALS: BP 101/59
[2021-07-13] MEDS: IPRATROPIUM BROM 0.5 MG/2.5ML INH SOL NEB SCH ×3 (05:33→19:30)
[2021-07-13] MEDS: ALBUTEROL SULF 2.5 MG/0.5ML(0.5%) NEB SOLN NEB SCH ×3 (05:33→19:31)
[2021-07-13] MEDS ORDERED: SODIUM CHL 0.9% 1000 ML BAG XX ONE (07:00)
[2021-07-13] MEDS: FUROSEMIDE 40 MG/4 ML VIAL IV SCH ×2 (07:04→17:38)
[2021-07-13 07:43] LABS: Basophils # (auto) 0.1 10 ^3/uL (0-0.2); Basophils % (auto) 1.2 % (0.0-2.0); Eosinophils # (auto) 0.2 10 ^3/uL (0-0.8); Eosinophils % (auto) 4.3 % (0.0-7.0); Hematocrit 30.5 % (36.0-46.0); Hemoglobin 10.1 g/dL (12.2-16.2); Lymphocytes # (auto) 1.1 10 ^3/uL (0.4-5.4); Lymphocytes % (auto) 26.4 % (10.0-50.0); Mean Corpuscular Volume 93.9 fL (80.0-100.0); Monocytes # (auto) 0.4 10 ^3/uL (0-1.3); Monocytes % (auto) 10.3 % (0.0-12.0); Neutrophils # (auto) 2.5 10 ^3/uL (1.6-8.6); Neutrophils % (auto) 57.8 % (37.0-80.0); Nucleated Red Blood Cells % 0.2 %; Red Blood Cells 3.25 10^6/uL (4.0-5.20); Red Cell Distribution Width 17.3 % (11.8-14.3); White Blood Cell 4.3 10^3/uL (4.4-10.8)
[2021-07-13 07:56] LABS: INR 1.33 (0.9-1.15); Partial Thromboplastin Time 39.9 sec (23.6-33.0)
[2021-07-13 08:07] LABS: % Iron Saturation 22.6 % (15-50)
[2021-07-13 08:09] LABS: Potassium 5.2 mmol/L (3.5-5.1)
[2021-07-13 08:16] LABS: Albumin 2.1 g/dL (3.4-5.0); BUN/Creatinine Ratio 8.3; Bilirubin, Total 0.6 mg/dL (0.2-1.0); Calcium 8.7 mg/dL (8.5-10.1); Magnesium 2.4 mg/dL (1.6-2.6); Phosphorus 5.2 mg/dL (2.5-4.90); Total Protein 8.1 g/dL (6.4-8.2); Uric Acid 5.2 mg/dL (2.6-6.0)
[2021-07-13] MEDS: ASPirin 81 mg TAB PO SCH (08:18)
[2021-07-13] MEDS: ISOSORBIDE MONONITRATE ER 60 MG TAB PO SCH (08:18)
[2021-07-13] MEDS: METOPROLOL SUCCINATE XL 50 MG TAB PO SCH (08:19)
[2021-07-13] MEDS: HEPARIN SODIUM (PORCINE) 5000 UNITS/ML 1ML VIAL SC SCH ×2 (08:29→23:10)
[2021-07-14] MEDS: FUROSEMIDE 40 MG/4 ML VIAL IV SCH ×2 (06:00→18:00)
[2021-07-14] MEDS: SODIUM ZIRCONIUM CYCL 10 GM PAK PO SCH ×2 (06:00→14:00)
[2021-07-14] MEDS: IPRATROPIUM BROM 0.5 MG/2.5ML INH SOL NEB SCH ×3 (07:24→19:09)
[2021-07-14] MEDS: ALBUTEROL SULF 2.5 MG/0.5ML(0.5%) NEB SOLN NEB SCH ×3 (07:24→19:10)
[2021-07-14] MEDS: ISOSORBIDE MONONITRATE ER 60 MG TAB PO SCH (07:56)
[2021-07-14] MEDS: APIXABAN 2.5 MG TAB PO SCH (07:56)
[2021-07-14] MEDS: ASPirin 81 mg TAB PO SCH (07:56)
[2021-07-14] MEDS: METOPROLOL SUCCINATE XL 50 MG TAB PO SCH (07:57)
[2021-07-14] MEDS: HEPARIN SODIUM (PORCINE) 5000 UNITS/ML 1ML VIAL SC SCH (07:57)
[2021-07-14 14:59] LABS: Hepatitis A Ab IgM Negative
[2021-07-14 15:11] LABS: Hepatitis B Core IgM Negative
[2021-07-14 15:16] LABS: Hepatitis C Antibody Negative (Negative)
[2021-07-14] MEDS ORDERED: LORazepam 2MG/ML-1ML VIAL IV PRN (20:45)
[2021-07-14] MEDS ORDERED: FAMOTIDINE (10MG/ML) 2ML VL IV SCH (22:00)
[2021-07-14 23:00] VITALS: BP 128/70
[2021-07-15 00:23] LABS: Calcium 8.4 mg/dL (8.5-10.1)
[2021-07-15 00:26] LABS: BUN/Creatinine Ratio 6.4
[2021-07-15 00:38] LABS: Folate (Folic Acid) 5.89 ng/mL (5.38-24)
[2021-07-15] MEDS: ATORVASTATIN 20 MG TAB PO SCH (00:46)
[2021-07-15] MEDS: APIXABAN 2.5 MG TAB PO SCH ×3 (00:47→21:08)
[2021-07-15] MEDS: HEPARIN SODIUM (PORCINE) 5000 UNITS/ML 1ML VIAL SC SCH ×2 (00:47→10:56)
[2021-07-15 05:00] VITALS: BP 129/82
[2021-07-15] MEDS: FUROSEMIDE 40 MG/4 ML VIAL IV SCH ×2 (06:32→06:42)
[2021-07-15] MEDS: ALBUTEROL SULF 2.5 MG/0.5ML(0.5%) NEB SOLN NEB SCH ×3 (06:46→19:08)
[2021-07-15] MEDS: IPRATROPIUM BROM 0.5 MG/2.5ML INH SOL NEB SCH ×3 (06:46→19:08)
[2021-07-15 09:00] VITALS: BP 161/89
[2021-07-15] MEDS: ASPirin 81 mg TAB PO SCH (10:48)
[2021-07-15] MEDS: ISOSORBIDE MONONITRATE ER 60 MG TAB PO SCH (10:49)
[2021-07-15] MEDS: METOPROLOL SUCCINATE XL 50 MG TAB PO SCH (10:50)
[2021-07-15 13:00] VITALS: BP 111/66
[2021-07-15 17:04] VITALS: BP 124/84
[2021-07-15 22:00] VITALS: BP 120/73
[2021-07-15] MEDS ORDERED: ATORVASTATIN 20 MG TAB PO SCH (22:00)
[2021-07-16 01:17] VITALS: BP 120/73
[2021-07-16 05:00] VITALS: BP 138/74
[2021-07-16] MEDS: ALBUTEROL SULF 2.5 MG/0.5ML(0.5%) NEB SOLN NEB SCH ×3 (05:56→18:00)
[2021-07-16] MEDS: IPRATROPIUM BROM 0.5 MG/2.5ML INH SOL NEB SCH ×3 (05:56→18:00)
[2021-07-16 09:00] VITALS: BP 142/87
[2021-07-16] MEDS: ISOSORBIDE MONONITRATE ER 60 MG TAB PO SCH (10:00)
[2021-07-16] MEDS: METOPROLOL SUCCINATE XL 50 MG TAB PO SCH (10:00)
[2021-07-16] MEDS ORDERED: ASPirin-EC 81 mg tab PO SCH (10:00)
[2021-07-16] MEDS: APIXABAN 2.5 MG TAB PO SCH (10:06)
[2021-07-16 13:00] VITALS: BP 148/83
[2021-07-16] MEDS ORDERED: SODIUM CHL 0.9% 1000 ML BAG XX ONE ×2 (14:30→17:00)
[2021-07-16 15:27] LABS: Hematocrit 34.4 % (36.0-46.0); Hemoglobin 10.7 g/dL (12.2-16.2)
[2021-07-16 17:00] VITALS: BP 141/80
[2021-07-16 19:07] VITALS: BP 161/89
[2021-07-16] MEDS ORDERED: EPOETIN ALFA-EPBX 10,000 UNIT/1ML VIAL SC ONE (21:00)
[2021-07-17 11:13] LABS: Hepatitis A Ab IgM Negative; Hepatitis B Core IgM Negative
[2021-07-17 11:14] LABS: Hepatitis C Antibody Negative (Negative)
== END 2021-07-16 21:26 | disposition home or self-care (01) | DRG 640 ==
LOC: ER 09:47 → EDBD 09:47 → OVERFLOW 18:11 → TELE-WESTW 07-14 22:25
PROVIDERS: ADMIT Hospitalist; ATTEND Family Medicine
PROC: 5A1D70Z Performance of Urinary Filtration, Intermittent, Less than 6 Hours Per Day (ICD-10-PCS; principal; 2021-07-13)
PROC: 5A1D70Z Performance of Urinary Filtration, Intermittent, Less than 6 Hours Per Day (ICD-10-PCS; 2021-07-14)
DX: E87.5 Hyperkalemia (principal); E43 Unspecified severe protein-calorie malnutrition; N18.6 End stage renal disease; J96.01 Acute respiratory failure with hypoxia; G93.41 Metabolic encephalopathy; I13.2 Hypertensive heart and chronic kidney disease with heart failure and with stage 5 chronic kidney disease, or end stage renal disease; G93.49 Other encephalopathy; I48.19 Other persistent atrial fibrillation; Z68.1 Body mass index [BMI] 19.9 or less, adult; S40.011A Contusion of right shoulder, initial encounter; E83.41 Hypermagnesemia; D63.8 Anemia in other chronic diseases classified elsewhere; S70.01XA Contusion of right hip, initial encounter; I25.5 Ischemic cardiomyopathy; M16.11 Unilateral primary osteoarthritis, right hip; M81.0 Age-related osteoporosis without current pathological fracture; I25.10 Atherosclerotic heart disease of native coronary artery without angina pectoris; E78.00 Pure hypercholesterolemia, unspecified; E78.5 Hyperlipidemia, unspecified; Z20.822 Contact with and (suspected) exposure to COVID-19; E11.22 Type 2 diabetes mellitus with diabetic chronic kidney disease; F17.200 Nicotine dependence, unspecified, uncomplicated; W01.0XXA Fall on same level from slipping, tripping and stumbling without subsequent striking against object, initial encounter; Z99.2 Dependence on renal dialysis; Z90.49 Acquired absence of other specified parts of digestive tract; Z79.82 Long term (current) use of aspirin; Z79.899 Other long term (current) drug therapy; Z82.49 Family history of ischemic heart disease and other diseases of the circulatory system; Z83.3 Family history of diabetes mellitus; Z86.73 Personal history of transient ischemic attack (TIA), and cerebral infarction without residual deficits; Z95.1 Presence of aortocoronary bypass graft; Z98.61 Coronary angioplasty status; Y93.89 Activity, other specified; Y92.098 Other place in other non-institutional residence as the place of occurrence of the external cause; Y99.8 Other external cause status
CPT/HCPCS: 36415; 70551; 71045; 73030; 73502; 73700; 80048; 80053; 80074; 82306; 82607; 82728; 82746; 82962; 83036; 83540; 83550; 83735; 83880; 83970; 84100; 84132; 84443; 84484; 84550; 85014; 85018; 85025; 85610; 85730; 87040; 87426; 90935; 93005; 93886; 94640; 95819; 96361; 96365; 96375; 97163; 99291; G0378; J1642; J1815; J2405; J3490; J7060

== ENCOUNTER 2021-08-30 03:39 | Emergency (ER) | payer OTHER ==
[~2021-08-30] VITALS: Ht 152.4 cm; Wt 45.4 kg
[2021-08-30 06:26] LABS: Basophils # (auto) 0.1 10 ^3/uL (0-0.2); Basophils % (auto) 1.7 % (0.0-2.0); Eosinophils # (auto) 0.4 10 ^3/uL (0-0.8); Eosinophils % (auto) 10.8 % (0.0-7.0); Hematocrit 36.4 % (36.0-46.0); Hemoglobin 11.7 g/dL (12.2-16.2); Lymphocytes # (auto) 0.9 10 ^3/uL (0.4-5.4); Lymphocytes % (auto) 22.8 % (10.0-50.0); Mean Corpuscular Hemoglobin 29.9 pg (28.0-32.0); Mean Corpuscular Hgb Conc. 32.2 g/dL (32.0-36.0); Mean Corpuscular Volume 92.7 fL (80.0-100.0); Monocytes # (auto) 0.4 10 ^3/uL (0-1.3); Monocytes % (auto) 8.9 % (0.0-12.0); Neutrophils # (auto) 2.3 10 ^3/uL (1.6-8.6); Neutrophils % (auto) 55.8 % (37.0-80.0); Nucleated Red Blood Cells % 0.2 %; Red Blood Cells 3.92 10^6/uL (4.0-5.20); Red Cell Distribution Width 17.6 % (11.8-14.3)
[2021-08-30 06:39] LABS: Albumin 2.5 g/dL (3.4-5.0); Calcium 8.4 mg/dL (8.5-10.1); INR 1.18 (0.9-1.15); Partial Thromboplastin Time 30.9 sec (23.6-33.0); Potassium 4.4 mmol/L (3.5-5.1)
[2021-08-30 06:43] LABS: BUN/Creatinine Ratio 7.8; Bilirubin, Total 0.5 mg/dL (0.2-1.0); Total Protein 8.8 g/dL (6.4-8.2)
[2021-08-30 06:44] LABS: Magnesium 2.1 mg/dL (1.6-2.6)
[2021-08-30] MEDS ORDERED: MORPHINE SULFATE INJECTION 2 MG/ML SYRG IV ONE (14:15)
[2021-08-30] MEDS ORDERED: ONDANSETRON HCL 4 MG/2 ML VIAL IV ONE (14:15)
[2021-08-30] MEDS ORDERED: DEXTROSE 50% SYRINGE 50 ML IV ONE (16:19)
[2021-08-30] MEDS ORDERED: DEXTROSE (50%) 50ML SYRG IV ONE (16:30)
[2021-08-30] MEDS ORDERED: SODIUM CHLORIDE 0.9% 500 ML IV ONE (16:30)
[2021-08-31 03:08] VITALS: BP 101/63
== END 2021-08-31 03:24 | disposition short-term general hospital (02) ==
LOC: ER 03:39 → EDBD 03:39 → ER 08-31 03:24
DX: R10.12 Left upper quadrant pain (principal); I12.0 Hypertensive chronic kidney disease with stage 5 chronic kidney disease or end stage renal disease; N18.6 End stage renal disease; E78.5 Hyperlipidemia, unspecified; Z90.49 Acquired absence of other specified parts of digestive tract; Z20.822 Contact with and (suspected) exposure to COVID-19
CPT/HCPCS: 36415; 71045; 74176; 80053; 82962; 83605; 83690; 83735; 84484; 85025; 85610; 85730; 87426; 93005; 96361; 96374; 96375; 99285; J2270; J2405; J7040; J7042

== ENCOUNTER 2021-09-18 22:01 | Inpatient (IN) | payer OTHER ==
[~2021-09-18] VITALS: Ht 157.5 cm; Wt 47.2 kg
[2021-09-18] MEDS ORDERED: SODIUM CHLORIDE 0.9% 500 ML IVB ONE (22:30)
[2021-09-18] MEDS ORDERED: MORPHINE SULFATE 4 MG/ML SYR/VIAL IV ONE (22:30)
[2021-09-18] MEDS ORDERED: ONDANSETRON HCL 4 MG/2 ML VIAL IV ONE (22:30)
[2021-09-18 23:40] LABS: Albumin 2.6 g/dL (3.4-5.0)
[2021-09-18 23:41] LABS: BUN/Creatinine Ratio 11.4
[2021-09-18 23:44] LABS: Bilirubin, Total 0.6 mg/dL (0.2-1.0); Total Protein 8.5 g/dL (6.4-8.2)
[2021-09-18 23:46] LABS: Basophils # (auto) 0.1 10 ^3/uL (0-0.2); Basophils % (auto) 2.3 % (0.0-2.0); Eosinophils # (auto) 0.2 10 ^3/uL (0-0.8); Eosinophils % (auto) 4.8 % (0.0-7.0); Hematocrit 33.4 % (36.0-46.0); Hemoglobin 10.5 g/dL (12.2-16.2); Lymphocytes # (auto) 0.7 10 ^3/uL (0.4-5.4); Lymphocytes % (auto) 15.5 % (10.0-50.0); Mean Corpuscular Hemoglobin 28.7 pg (28.0-32.0); Mean Corpuscular Hgb Conc. 31.5 g/dL (32.0-36.0); Mean Corpuscular Volume 91.2 fL (80.0-100.0); Monocytes # (auto) 0.5 10 ^3/uL (0-1.3); Monocytes % (auto) 11.4 % (0.0-12.0); Nucleated Red Blood Cells % 0.9 %; Red Blood Cells 3.66 10^6/uL (4.0-5.20); Red Cell Distribution Width 18.9 % (11.8-14.3); White Blood Cell 4.6 10^3/uL (4.4-10.8)
[2021-09-18 23:53] LABS: Potassium 6.6 mmol/L (3.5-5.1)
[2021-09-19] MEDS ORDERED: SODIUM ZIRCONIUM CYCL 10 GM PAK PO ONE
[2021-09-19] MEDS ORDERED: SODIUM BICARBONATE 8.4% INJ 50ML SYRINGE IV ONE
[2021-09-19] MEDS ORDERED: CALCIUM GLUC 1,000mg/50ml-NS 50 ML IV ONE
[2021-09-19] MEDS ORDERED: SODIUM BICARBONATE 8.4 % INJ 50ML VIAL IV ONE (00:07)
[2021-09-19] MEDS ORDERED: HYDROcodone-ACET 5/325MG TAB PO PRN (03:45)
[2021-09-19] MEDS ORDERED: ONDANSETRON HCL 4 MG/2 ML VIAL IV PRN (03:45)
[2021-09-19] MEDS ORDERED: DEXTROSE (50%) 50ML SYRG IV PRN (03:45)
[2021-09-19] MEDS ORDERED: ACETAMINOPHEN 325 MG TAB PO PRN (03:45)
[2021-09-19] MEDS ORDERED: DOCUSATE SOD 100 MG CAP PO PRN (03:45)
[2021-09-19] MEDS: InsuLIN REG 1unit/0.01ml Soln (100units/ml) SC SCH ×5 (04:00→20:00)
[2021-09-19] MEDS ORDERED: D5W/SOD CHL 0.45% 1,000 ML IV ONE (04:00)
[2021-09-19] MEDS: ACCU-CHEK COMFORT CURVE STRIP VI SCH ×5 (04:10→20:00)
[2021-09-19] MEDS ORDERED: MORPHINE SULFATE INJECTION 2 MG/ML SYRG IV PRN (04:30)
[2021-09-19] MEDS ORDERED: NITROGLYCERIN 0.4 MG SL TAB SL PRN (04:30)
[2021-09-19 07:49] LABS: Albumin 2.6 g/dL (3.4-5.0); BUN/Creatinine Ratio 10.8; Bilirubin, Total 0.6 mg/dL (0.2-1.0); Calcium 8.2 mg/dL (8.5-10.1); Total Protein 8.7 g/dL (6.4-8.2)
[2021-09-19 08:33] LABS: Potassium 6.3 mmol/L (3.5-5.1)
[2021-09-19 08:41] LABS: Basophils # (auto) 0.1 10 ^3/uL (0-0.2); Basophils % (auto) 1.2 % (0.0-2.0); Eosinophils # (auto) 0.2 10 ^3/uL (0-0.8); Eosinophils % (auto) 3.2 % (0.0-7.0); Hematocrit 33.5 % (36.0-46.0); Hemoglobin 10.5 g/dL (12.2-16.2); Lymphocytes # (auto) 0.8 10 ^3/uL (0.4-5.4); Lymphocytes % (auto) 16.5 % (10.0-50.0); Mean Corpuscular Hemoglobin 28.6 pg (28.0-32.0); Mean Corpuscular Hgb Conc. 31.2 g/dL (32.0-36.0); Mean Corpuscular Volume 91.5 fL (80.0-100.0); Monocytes # (auto) 0.8 10 ^3/uL (0-1.3); Monocytes % (auto) 15.3 % (0.0-12.0); Neutrophils # (auto) 3.1 10 ^3/uL (1.6-8.6); Neutrophils % (auto) 63.8 % (37.0-80.0); Nucleated Red Blood Cells % 0.6 %; Red Blood Cells 3.66 10^6/uL (4.0-5.20); Red Cell Distribution Width 18.9 % (11.8-14.3); White Blood Cell 4.9 10^3/uL (4.4-10.8)
[2021-09-19 09:00] VITALS: BP 113/73
[2021-09-19] MEDS: SEVELAMER 800 MG TAB PO SCH ×3 (10:37→18:00)
[2021-09-19] MEDS: ZINC SULFATE 220mg CAP or TAB PO SCH (10:38)
[2021-09-19] MEDS: B-COMPLEX W/ C & FOLIC ACID(NEPHROVITE TAB) PO SCH (10:38)
[2021-09-19] MEDS: ASCORBIC ACID 500 MG TAB PO SCH ×2 (10:38→22:07)
[2021-09-19] MEDS: FAMOTIDINE (10MG/ML) 2ML VL IV SCH ×2 (10:38→21:38)
[2021-09-19] MEDS: HEPARIN SODIUM (PORCINE) 5000 UNITS/ML 1ML VIAL SC SCH ×2 (10:47→21:41)
[2021-09-19] MEDS ORDERED: SODIUM BICARBONATE 8.4 % INJ 50ML VIAL IV STA (10:51)
[2021-09-19] MEDS ORDERED: ALBUTEROL SULF 2.5 MG/0.5ML(0.5%) NEB SOLN NEB STA (10:51)
[2021-09-19] MEDS ORDERED: CALCIUM GLUC 1,000mg/50ml-NS 50 ML IV STA (10:51)
[2021-09-19] MEDS ORDERED: InsuLIN REG 1unit/0.01ml Soln (100units/ml) IV STA (10:54)
[2021-09-19] MEDS ORDERED: DEXTROSE (50%) 50ML SYRG IV ONE ×2 (11:00)
[2021-09-19] MEDS ORDERED: SODIUM CHL 0.9% 1000 ML BAG XX ONE (11:00)
[2021-09-19 12:49] VITALS: BP 107/64
[2021-09-19 16:46] VITALS: BP 117/80
[2021-09-19 20:00] VITALS: BP 123/79
[2021-09-19] MEDS ORDERED: EPOETIN ALFA-EPBX 10,000 UNIT/1ML VIAL SC ONE (21:00)
[2021-09-19] MEDS ORDERED: cefTRIAXone 1GM/50ML D5W 50 ML IV ONE (21:00)
[2021-09-19 22:00] VITALS: BP 123/79
[2021-09-19 22:01] LABS: Alanine Aminotransferase 13 U/L (13-56); Albumin 2.4 g/dL (3.4-5.0); Anion Gap 13 (5-15); BUN/Creatinine Ratio 9.8; Blood Urea Nitrogen 58 mg/dL (7-18); Calcium 7.7 mg/dL (8.5-10.1); Carbon Dioxide 24 mmol/L (21-32); Chloride 105 mmol/L (98-107); GFR African American 9 mL/min; GFR Non-African American 7 mL/min; Glucose 58 mg/dL (74-106); Potassium 5.3 mmol/L (3.5-5.1); Sodium 142 mmol/L (136-145)
[2021-09-19 22:04] LABS: Alkaline Phosphatase 130 U/L (45-117); Aspartate Aminotransferase 30 U/L (15-37); Bilirubin, Total 0.6 mg/dL (0.2-1.0); Total Protein 7.9 g/dL (6.4-8.2)
[2021-09-20] VITALS (8 sets, daily range): BP systolic 114–127; BP diastolic 70–84
[2021-09-20] MEDS: ACCU-CHEK COMFORT CURVE STRIP VI SCH ×6 (04:00→20:00)
[2021-09-20] MEDS: InsuLIN REG 1unit/0.01ml Soln (100units/ml) SC SCH ×6 (04:00→20:00)
[2021-09-20 05:44] LABS: Hematocrit 31.3 % (36.0-46.0); Mean Corpuscular Hemoglobin 28.9 pg (28.0-32.0); Mean Corpuscular Hgb Conc. 31.8 g/dL (32.0-36.0); Mean Corpuscular Volume 90.8 fL (80.0-100.0); Red Blood Cells 3.45 10^6/uL (4.0-5.20); Red Cell Distribution Width 18.9 % (11.8-14.3); White Blood Cell 6.6 10^3/uL (4.4-10.8)
[2021-09-20 05:49] LABS: Albumin 2.3 g/dL (3.4-5.0); Calcium 7.7 mg/dL (8.5-10.1); Potassium 5.4 mmol/L (3.5-5.1)
[2021-09-20 05:50] LABS: Basophils % (manual) 0 (0.0-2.0); Blast Cells 0; Metamyelocytes % 0; Myelocytes % 0; Promyelocytes % 0; Reactive Lymphocytes 0
[2021-09-20 05:53] LABS: BUN/Creatinine Ratio 10.1; Bilirubin, Total 0.5 mg/dL (0.2-1.0); Total Protein 8.1 g/dL (6.4-8.2)
[2021-09-20 06:13] LABS: Band Neutrophils % (manual) 4; Eosinophils % (manual) 8 (0-7); Lymphocytes % (manual) 17 (10.0-50.0); Monocytes % (manual) 9 (0-12)
[2021-09-20] MEDS ORDERED: SODIUM ZIRCONIUM CYCL 10 GM PAK PO ONE (10:00)
[2021-09-20] MEDS: ASCORBIC ACID 500 MG TAB PO SCH ×2 (10:10→22:15)
[2021-09-20] MEDS: SEVELAMER 800 MG TAB PO SCH ×4 (10:10→16:50)
[2021-09-20] MEDS: B-COMPLEX W/ C & FOLIC ACID(NEPHROVITE TAB) PO SCH (10:10)
[2021-09-20] MEDS: FAMOTIDINE (10MG/ML) 2ML VL IV SCH ×2 (10:10→22:15)
[2021-09-20] MEDS: ZINC SULFATE 220mg CAP or TAB PO SCH (10:10)
[2021-09-20] MEDS: HEPARIN SODIUM (PORCINE) 5000 UNITS/ML 1ML VIAL SC SCH ×2 (10:15→22:16)
[2021-09-20] MEDS: DEXTROSE 10% 1,000 ML IV SCH (10:30)
[2021-09-20] MEDS ORDERED: DEXTROSE 10% 1,000 ML IV ONE (10:45)
[2021-09-20] MEDS: Nepro With Carbsteady ButterPecan 8oz Carton PO SCH (16:48)
[2021-09-21] MEDS: InsuLIN REG 1unit/0.01ml Soln (100units/ml) SC SCH ×6 (04:00→20:00)
[2021-09-21] MEDS: ACCU-CHEK COMFORT CURVE STRIP VI SCH ×6 (04:00→20:00)
[2021-09-21 05:00] VITALS: BP 121/76
[2021-09-21 06:21] LABS: Calcium 7.9 mg/dL (8.5-10.1); Potassium 4.9 mmol/L (3.5-5.1)
[2021-09-21 06:25] LABS: BUN/Creatinine Ratio 10.2
[2021-09-21] MEDS: Nepro With Carbsteady ButterPecan 8oz Carton PO SCH ×2 (09:18→17:59)
[2021-09-21] MEDS: SEVELAMER 800 MG TAB PO SCH ×3 (09:19→17:59)
[2021-09-21 10:28] VITALS: BP 128/74
[2021-09-21] MEDS: DEXTROSE 10% 1,000 ML IV SCH (10:30)
[2021-09-21] MEDS: FAMOTIDINE (10MG/ML) 2ML VL IV SCH ×2 (10:50→21:27)
[2021-09-21] MEDS: ZINC SULFATE 220mg CAP or TAB PO SCH (10:50)
[2021-09-21] MEDS: ASCORBIC ACID 500 MG TAB PO SCH ×2 (10:51→21:27)
[2021-09-21] MEDS: B-COMPLEX W/ C & FOLIC ACID(NEPHROVITE TAB) PO SCH (10:51)
[2021-09-21] MEDS: HEPARIN SODIUM (PORCINE) 5000 UNITS/ML 1ML VIAL SC SCH ×2 (11:55→21:30)
[2021-09-21] MEDS ORDERED: SODIUM CHL 0.9% 1000 ML BAG XX ONE (12:00)
[2021-09-21 14:41] VITALS: BP 97/70
[2021-09-21 16:41] VITALS: BP 129/78
[2021-09-21 20:00] VITALS: BP 118/80
[2021-09-21] MEDS ORDERED: EPOETIN ALFA-EPBX 10,000 UNIT/1ML VIAL SC ONE (21:00)
[2021-09-22 04:00] VITALS: BP 131/91
[2021-09-22] MEDS: InsuLIN REG 1unit/0.01ml Soln (100units/ml) SC SCH ×6 (04:00→20:00)
[2021-09-22] MEDS: ACCU-CHEK COMFORT CURVE STRIP VI SCH ×6 (04:00→20:00)
[2021-09-22] MEDS: Nepro With Carbsteady ButterPecan 8oz Carton PO SCH ×2 (07:47→18:05)
[2021-09-22 08:03] LABS: Potassium 4.4 mmol/L (3.5-5.1)
[2021-09-22] MEDS: FAMOTIDINE (10MG/ML) 2ML VL IV SCH ×2 (09:45→22:08)
[2021-09-22] MEDS: ZINC SULFATE 220mg CAP or TAB PO SCH (09:45)
[2021-09-22] MEDS: SEVELAMER 800 MG TAB PO SCH ×3 (09:45→18:05)
[2021-09-22] MEDS: ASCORBIC ACID 500 MG TAB PO SCH ×2 (09:46→22:08)
[2021-09-22] MEDS: B-COMPLEX W/ C & FOLIC ACID(NEPHROVITE TAB) PO SCH (09:46)
[2021-09-22 09:56] VITALS: BP 135/4
[2021-09-22] MEDS: HEPARIN SODIUM (PORCINE) 5000 UNITS/ML 1ML VIAL SC SCH ×2 (10:00→22:09)
[2021-09-22 10:22] LABS: INR 1.24 (0.9-1.15); Partial Thromboplastin Time 36.2 sec (23.6-33.0)
[2021-09-22] MEDS: DEXTROSE 10% 1,000 ML IV SCH (10:30)
[2021-09-22 15:33] LABS: Hepatitis A Ab IgM Negative; Hepatitis B Core IgM Negative; Hepatitis C Antibody Negative (Negative)
[2021-09-22 20:00] VITALS: BP 118/80
[2021-09-22 22:00] VITALS: BP 122/87
[2021-09-23] VITALS (8 sets, daily range): BP systolic 112–138; BP diastolic 65–95
[2021-09-23] MEDS: InsuLIN REG 1unit/0.01ml Soln (100units/ml) SC SCH ×6 (04:00→20:00)
[2021-09-23] MEDS: ACCU-CHEK COMFORT CURVE STRIP VI SCH ×6 (04:00→21:15)
[2021-09-23] MEDS: SEVELAMER 800 MG TAB PO SCH ×3 (08:44→17:48)
[2021-09-23] MEDS: Nepro With Carbsteady ButterPecan 8oz Carton PO SCH ×2 (08:44→17:48)
[2021-09-23] MEDS: ASCORBIC ACID 500 MG TAB PO SCH ×2 (08:45→21:31)
[2021-09-23] MEDS: ZINC SULFATE 220mg CAP or TAB PO SCH (08:45)
[2021-09-23] MEDS: FAMOTIDINE (10MG/ML) 2ML VL IV SCH ×2 (08:45→21:30)
[2021-09-23] MEDS: HEPARIN SODIUM (PORCINE) 5000 UNITS/ML 1ML VIAL SC SCH ×2 (08:45→21:32)
[2021-09-23] MEDS: B-COMPLEX W/ C & FOLIC ACID(NEPHROVITE TAB) PO SCH (08:45)
[2021-09-23] MEDS: MEGESTROL ACET 400MG/10ML ORAL SUSP PO SCH ×2 (10:00→21:31)
[2021-09-23 10:17] LABS: BUN/Creatinine Ratio 9.4; Bilirubin, Total 0.5 mg/dL (0.2-1.0); Calcium 8.5 mg/dL (8.5-10.1)
[2021-09-23] MEDS: DEXTROSE 10% 1,000 ML IV SCH (10:30)
[2021-09-23 11:04] LABS: Potassium 6.4 mmol/L (3.5-5.1)
[2021-09-23] MEDS ORDERED: SODIUM CHL 0.9% 1000 ML BAG XX ONE (11:15)
[2021-09-23] MEDS ORDERED: EPOETIN ALFA-EPBX 4,000 UNIT/ML VIAL SC ONE (21:00)
[2021-09-24] MEDS: DEXTROSE 10% 1,000 ML IV SCH (04:11)
[2021-09-24 05:00] VITALS: BP 98/67
[2021-09-24] MEDS: InsuLIN REG 1unit/0.01ml Soln (100units/ml) SC SCH ×5 (05:34→16:00)
[2021-09-24] MEDS: ACCU-CHEK COMFORT CURVE STRIP VI SCH ×5 (05:34→16:00)
[2021-09-24 07:09] LABS: BUN/Creatinine Ratio 9.3; Calcium 8.6 mg/dL (8.5-10.1); Potassium 4.4 mmol/L (3.5-5.1)
[2021-09-24 09:00] VITALS: BP 137/83
[2021-09-24] MEDS: SEVELAMER 800 MG TAB PO SCH ×2 (09:29→12:00)
[2021-09-24] MEDS: Nepro With Carbsteady ButterPecan 8oz Carton PO SCH (09:29)
[2021-09-24] MEDS: MEGESTROL ACET 400MG/10ML ORAL SUSP PO SCH (09:30)
[2021-09-24] MEDS: B-COMPLEX W/ C & FOLIC ACID(NEPHROVITE TAB) PO SCH (09:30)
[2021-09-24] MEDS: FAMOTIDINE (10MG/ML) 2ML VL IV SCH (09:30)
[2021-09-24] MEDS: ZINC SULFATE 220mg CAP or TAB PO SCH (09:30)
[2021-09-24] MEDS: HEPARIN SODIUM (PORCINE) 5000 UNITS/ML 1ML VIAL SC SCH (09:32)
[2021-09-24] MEDS: ASCORBIC ACID 500 MG TAB PO SCH (09:32)
[2021-09-24 13:00] VITALS: BP 145/59
[2021-09-24 17:00] VITALS: BP 105/75
[2021-10-07] MEDS ORDERED: DILT-14 PO (10:34)
== END 2021-09-24 18:26 | disposition home or self-care (01) | DRG 698 ==
LOC: EDBD 22:01 → ER 22:04 → TELE 09-19 04:20 → TELE-WESTW 09-19 06:08
PROVIDERS: ADMIT Nurse Practitioner Family; ATTEND Internal Medicine Geriatric Medicine
PROC: 5A1D70Z Performance of Urinary Filtration, Intermittent, Less than 6 Hours Per Day (ICD-10-PCS; principal; 2021-09-19)
PROC: 5A1D70Z Performance of Urinary Filtration, Intermittent, Less than 6 Hours Per Day (ICD-10-PCS; 2021-09-21)
PROC: 5A1D70Z Performance of Urinary Filtration, Intermittent, Less than 6 Hours Per Day (ICD-10-PCS; 2021-09-23)
DX: T86.19 Other complication of kidney transplant (principal); N18.6 End stage renal disease; E43 Unspecified severe protein-calorie malnutrition; I12.0 Hypertensive chronic kidney disease with stage 5 chronic kidney disease or end stage renal disease; J90 Pleural effusion, not elsewhere classified; Z68.1 Body mass index [BMI] 19.9 or less, adult; R19.03 Right lower quadrant abdominal swelling, mass and lump; Z94.0 Kidney transplant status; E87.5 Hyperkalemia; Z99.2 Dependence on renal dialysis; E78.5 Hyperlipidemia, unspecified; I48.91 Unspecified atrial fibrillation; I25.10 Atherosclerotic heart disease of native coronary artery without angina pectoris; D64.9 Anemia, unspecified; K21.9 Gastro-esophageal reflux disease without esophagitis; Z82.49 Family history of ischemic heart disease and other diseases of the circulatory system; Z83.3 Family history of diabetes mellitus; Z86.79 Personal history of other diseases of the circulatory system; Z95.1 Presence of aortocoronary bypass graft; Z90.49 Acquired absence of other specified parts of digestive tract
CPT/HCPCS: 32555; 36415; 71045; 74176; 76604; 76700; 76942; 80048; 80053; 80074; 82150; 82962; 83036; 83690; 85007; 85025; 85027; 85610; 85730; 87205; 87426; 89051; 90935; 93005; 94640; 96365; 96375; 99291; G0378; J0696; J1642; J1815; J3490

== ENCOUNTER 2021-09-30 14:04 | Inpatient (IN) | payer OTHER ==
[~2021-09-30] VITALS: Ht 167.6 cm; Wt 44.0 kg
[2021-09-30] MEDS ORDERED: SODIUM CHLORIDE 0.9% 1,000 ML IV ONE (14:15)
[2021-09-30 14:43] LABS: Basophils # (auto) 0.1 10 ^3/uL (0-0.2); Basophils % (auto) 1.4 % (0.0-2.0); Eosinophils # (auto) 0.3 10 ^3/uL (0-0.8); Eosinophils % (auto) 4.4 % (0.0-7.0); Hematocrit 34.9 % (36.0-46.0); Hemoglobin 10.9 g/dL (12.2-16.2); Lymphocytes % (auto) 14.4 % (10.0-50.0); Mean Corpuscular Hemoglobin 29.1 pg (28.0-32.0); Mean Corpuscular Hgb Conc. 31.2 g/dL (32.0-36.0); Mean Corpuscular Volume 93.2 fL (80.0-100.0); Monocytes # (auto) 0.7 10 ^3/uL (0-1.3); Monocytes % (auto) 10.7 % (0.0-12.0); Neutrophils # (auto) 4.6 10 ^3/uL (1.6-8.6); Neutrophils % (auto) 69.1 % (37.0-80.0); Nucleated Red Blood Cells % 0.5 %; Red Blood Cells 3.74 10^6/uL (4.0-5.20); Red Cell Distribution Width 18.1 % (11.8-14.3); White Blood Cell 6.7 10^3/uL (4.4-10.8)
[2021-09-30 14:58] LABS: INR 1.25 (0.9-1.15); Partial Thromboplastin Time 30.2 sec (23.6-33.0)
[2021-09-30 15:10] LABS: Calcium 8.3 mg/dL (8.5-10.1)
[2021-09-30 15:17] LABS: BUN/Creatinine Ratio 9.9; Bilirubin, Total 0.6 mg/dL (0.2-1.0); Total Protein 7.6 g/dL (6.4-8.2)
[2021-09-30 15:22] LABS: Potassium 6.5 mmol/L (3.5-5.1)
[2021-09-30] MEDS ORDERED: InsuLIN REG 1unit/0.01ml Soln (100units/ml) IV ONE ×3 (16:45→20:45)
[2021-09-30] MEDS ORDERED: DEXTROSE (50%) 50ML SYRG IV ONE ×3 (16:45→20:45)
[2021-09-30] MEDS ORDERED: FUROSEMIDE 20 MG/2 ML VIAL IV ONE (16:45)
[2021-09-30] MEDS ORDERED: SODIUM ZIRCONIUM CYCL 10 GM PAK PO ONE ×3 (16:45→21:00)
[2021-09-30] MEDS ORDERED: CALCIUM GLUC 1,000mg/50ml-NS 50 ML IV ONE ×2 (16:45→20:45)
[2021-09-30] MEDS ORDERED: ALBUTEROL SULF 2.5 MG/0.5ML(0.5%) NEB SOLN NEB ONE ×2 (16:45→19:00)
[2021-09-30] MEDS ORDERED: ACETAMINOPHEN 325 MG TAB PO PRN (19:00)
[2021-09-30] MEDS ORDERED: VANCOMYCIN PER PHARMACY 1,000 MG IV SCH (19:00)
[2021-09-30] MEDS ORDERED: CALCIUM CHL 100MG/ML 1,000 MG in D5W 5% 100 ML IV ONE (19:00)
[2021-09-30] MEDS ORDERED: SODIUM BICARBONATE 8.4% INJ 50ML SYRINGE IV ONE (19:00)
[2021-09-30] MEDS ORDERED: MORPHINE SULFATE INJECTION 2 MG/ML SYRG IV PRN ×4 (19:00→19:45)
[2021-09-30] MEDS ORDERED: LORazepam 2MG/ML-1ML VIAL IV PRN (19:00)
[2021-09-30] MEDS ORDERED: NITROGLYCERIN 0.4 MG SL TAB SL PRN ×2 (19:00→19:45)
[2021-09-30] MEDS ORDERED: FUROSEMIDE 40 MG/4 ML VIAL IV ONE (19:00)
[2021-09-30] MEDS ORDERED: DOBUTamine 1000MCG/ML 250 ML IV SCH (19:15)
[2021-09-30] MEDS ORDERED: BUMETANIDE 2.5mg/10ml (0.25 mg/ml) INJ IV ONE (19:15)
[2021-09-30] MEDS ORDERED: PANTOPRAZOLE 40 MG/10 ML VIAL INJ IV ONE (19:30)
[2021-09-30] MEDS ORDERED: IPRATROPIUM BROM 0.5 MG/2.5ML INH SOL NEB ONE (19:30)
[2021-09-30] MEDS ORDERED: DOCUSATE SOD 100 MG CAP PO PRN (19:45)
[2021-09-30] MEDS ORDERED: ONDANSETRON HCL 4 MG/2 ML VIAL IV PRN (19:45)
[2021-09-30] MEDS ORDERED: ALUM & MAG HYDROX-SIMETH LIQ(MAALOX) 30 ML PO PRN (19:45)
[2021-09-30] MEDS ORDERED: LORazepam 0.5 MG TAB PO PRN (19:45)
[2021-09-30] MEDS ORDERED: VANCOMYCIN 500 MG in D5W 5% 100 ML IV ONE (20:00)
[2021-09-30 20:08] LABS: Cholesterol 114 mg/dL (< 200)
[2021-09-30 20:11] LABS: HDL Cholesterol 29 mg/dL (40-59); LDL Cholesterol 63 mg/dL (< 100); Triglycerides 137 mg/dL (< 150)
[2021-09-30] MEDS ORDERED: SODIUM BICARBONATE 8.4 % INJ 50ML VIAL IV ONE (20:45)
[2021-09-30] MEDS ORDERED: ALBUTEROL SULF 2.5 MG/0.5ML(0.5%) NEB SOLN NEB PRN (20:45)
[2021-09-30] MEDS: ATORVASTATIN 20 MG TAB PO SCH (22:00)
[2021-09-30] MEDS ORDERED: PIPERACILLIN-TAZOB 3.375GM 100 ML IV SCH (22:00)
[2021-09-30] MEDS: PIPERACILLIN-TAZOB 2.25GM 50 ML IV SCH (22:00)
[2021-09-30] MEDS: APIXABAN 2.5 MG TAB PO SCH (22:00)
[2021-09-30 22:45] LABS: Lactic Acid w/Reflex 3.3 mmol/L (0.4-2.0)
[2021-10-01] MEDS ORDERED: IPRATROPIUM BROM 0.5 MG/2.5ML INH SOL NEB SCH (02:00)
[2021-10-01] MEDS: SODIUM ZIRCONIUM CYCL 10 GM PAK PO SCH ×3 (06:20→22:40)
[2021-10-01] MEDS: BUMETANIDE 2.5mg/10ml (0.25 mg/ml) INJ IV SCH ×2 (06:30→18:00)
[2021-10-01] MEDS: PIPERACILLIN-TAZOB 2.25GM 50 ML IV SCH ×3 (06:30→22:40)
[2021-10-01 07:25] LABS: Basophils # (auto) 0.1 10 ^3/uL (0-0.2); Basophils % (auto) 1.9 % (0.0-2.0); Eosinophils # (auto) 0.2 10 ^3/uL (0-0.8); Eosinophils % (auto) 4.7 % (0.0-7.0); Hematocrit 33.8 % (36.0-46.0); Hemoglobin 10.6 g/dL (12.2-16.2); Lymphocytes # (auto) 0.5 10 ^3/uL (0.4-5.4); Lymphocytes % (auto) 10.7 % (10.0-50.0); Mean Corpuscular Hemoglobin 29.1 pg (28.0-32.0); Mean Corpuscular Hgb Conc. 31.4 g/dL (32.0-36.0); Mean Corpuscular Volume 92.8 fL (80.0-100.0); Monocytes # (auto) 0.4 10 ^3/uL (0-1.3); Monocytes % (auto) 7.9 % (0.0-12.0); Neutrophils # (auto) 3.5 10 ^3/uL (1.6-8.6); Neutrophils % (auto) 74.8 % (37.0-80.0); Nucleated Red Blood Cells % 1.2 %; Red Blood Cells 3.64 10^6/uL (4.0-5.20); Red Cell Distribution Width 18.3 % (11.8-14.3); White Blood Cell 4.6 10^3/uL (4.4-10.8)
[2021-10-01 07:43] LABS: Albumin 1.9 g/dL (3.4-5.0); Calcium 8.7 mg/dL (8.5-10.1); Magnesium 2.6 mg/dL (1.6-2.6)
[2021-10-01 07:49] LABS: BUN/Creatinine Ratio 10.6; Bilirubin, Total 0.6 mg/dL (0.2-1.0); Phosphorus 8.2 mg/dL (2.5-4.90); Total Protein 7.2 g/dL (6.4-8.2); Uric Acid 7.8 mg/dL (2.6-6.0)
[2021-10-01 08:35] LABS: Potassium 5.9 mmol/L (3.5-5.1)
[2021-10-01] MEDS ORDERED: METOPROLOL SUCCINATE XL 50 MG TAB PO SCH (10:00)
[2021-10-01] MEDS: APIXABAN 2.5 MG TAB PO SCH ×2 (10:42→22:40)
[2021-10-01] MEDS: PANTOPRAZOLE 40 MG/10 ML VIAL INJ IV SCH (10:42)
[2021-10-01] MEDS ORDERED: VANCOMYCIN 1GM/250ML 250 ML IV ONE (12:00)
[2021-10-01] MEDS: NOREPINEPHRINE 8 MG/250ML KIT 250 ML IV SCH ×3 (13:39→21:46)
[2021-10-01] MEDS ORDERED: SODIUM CHL 0.9% 1000 ML BAG XX ONE (14:00)
[2021-10-01] MEDS ORDERED: ALBUMIN 25% 100 ML IV SCH (14:00)
[2021-10-01] MEDS ORDERED: ALBUMIN 25% 50 ML IV ONE (14:45)
[2021-10-01] MEDS ORDERED: DOBUTamine 1000MCG/ML 250 ML IV SCH (15:30)
[2021-10-01] MEDS ORDERED: ALBUMIN 25% 100 ML IV ONE (16:00)
[2021-10-01] MEDS ORDERED: EPOETIN ALFA-EPBX 4,000 UNIT/ML VIAL SC ONE (21:00)
[2021-10-01] MEDS: ATORVASTATIN 20 MG TAB PO SCH (22:40)
[2021-10-02] MEDS: SODIUM ZIRCONIUM CYCL 10 GM PAK PO SCH ×2 (06:00→14:00)
[2021-10-02] MEDS: BUMETANIDE 2.5mg/10ml (0.25 mg/ml) INJ IV SCH (06:00)
[2021-10-02] MEDS: PIPERACILLIN-TAZOB 2.25GM 50 ML IV SCH (06:01)
[2021-10-02 06:40] LABS: Basophils # (auto) 0 10 ^3/uL (0-0.2); Basophils % (auto) 0.9 % (0.0-2.0); Eosinophils # (auto) 0.2 10 ^3/uL (0-0.8); Eosinophils % (auto) 3.6 % (0.0-7.0); Hematocrit 35.1 % (36.0-46.0); Lymphocytes # (auto) 0.6 10 ^3/uL (0.4-5.4); Lymphocytes % (auto) 11.2 % (10.0-50.0); Mean Corpuscular Hgb Conc. 31.3 g/dL (32.0-36.0); Mean Corpuscular Volume 92.7 fL (80.0-100.0); Monocytes # (auto) 0.5 10 ^3/uL (0-1.3); Monocytes % (auto) 9.2 % (0.0-12.0); Neutrophils # (auto) 3.9 10 ^3/uL (1.6-8.6); Neutrophils % (auto) 75.1 % (37.0-80.0); Red Blood Cells 3.79 10^6/uL (4.0-5.20); White Blood Cell 5.2 10^3/uL (4.4-10.8)
[2021-10-02 07:05] LABS: INR 1.28 (0.9-1.15)
[2021-10-02 07:06] LABS: Potassium 5.5 mmol/L (3.5-5.1)
[2021-10-02 07:23] LABS: Albumin 2.5 g/dL (3.4-5.0); BUN/Creatinine Ratio 8.7; Bilirubin, Total 0.8 mg/dL (0.2-1.0); Calcium 7.8 mg/dL (8.5-10.1); Magnesium 3.3 mg/dL (1.6-2.6); Total Protein 7.7 g/dL (6.4-8.2)
[2021-10-02] MEDS: NOREPINEPHRINE 8 MG/250ML KIT 250 ML IV SCH (08:32)
[2021-10-02] MEDS: APIXABAN 2.5 MG TAB PO SCH ×2 (10:11→22:26)
[2021-10-02] MEDS: PANTOPRAZOLE 40 MG/10 ML VIAL INJ IV SCH (10:11)
[2021-10-02 12:44] LABS: Hepatitis A Ab IgM Negative; Hepatitis B Core IgM Negative; Hepatitis C Antibody Negative (Negative)
[2021-10-02] MEDS: HYDROcodone-ACET 5/325MG TAB PO PRN (12:55)
[2021-10-02] MEDS ORDERED: PRE5T PO (13:25)
[2021-10-02] MEDS ORDERED: LISI-716 PO (13:25)
[2021-10-02] MEDS ORDERED: ATOR20TA PO (13:25)
[2021-10-02] MEDS ORDERED: NITR0.4S29 SL (13:25)
[2021-10-02] MEDS ORDERED: HYDR-4072 PO (13:25)
[2021-10-02] MEDS ORDERED: CINA30TA2 PO (13:25)
[2021-10-02] MEDS ORDERED: SEVE800T8 PO (13:25)
[2021-10-02] MEDS ORDERED: DILT180C49 PO (13:25)
[2021-10-02] MEDS ORDERED: APIX2.5T PO (13:25)
[2021-10-02] MEDS ORDERED: methylPREDNISolone SOD SUCC 40 MG/ML VL IV ONE (14:00)
[2021-10-02] MEDS: ATORVASTATIN 20 MG TAB PO SCH (22:26)
[2021-10-03] VITALS (22 sets, daily range): BP systolic 87–125; BP diastolic 38–85
[2021-10-03] MEDS: SODIUM ZIRCONIUM CYCL 10 GM PAK PO SCH (00:26)
[2021-10-03] MEDS: NOREPINEPHRINE 8 MG/250ML KIT 250 ML IV SCH (01:52)
[2021-10-03 05:44] LABS: Potassium 5.2 mmol/L (3.5-5.1)
[2021-10-03 05:49] LABS: BUN/Creatinine Ratio 9.1; Calcium 7.9 mg/dL (8.5-10.1)
[2021-10-03] MEDS ORDERED: SODIUM CHL 0.9% 1000 ML BAG XX ONE (06:45)
[2021-10-03] MEDS: APIXABAN 2.5 MG TAB PO SCH ×2 (10:00→21:15)
[2021-10-03] MEDS: PANTOPRAZOLE 40 MG/10 ML VIAL INJ IV SCH (10:00)
[2021-10-03] MEDS: predniSONE 5 MG TAB PO SCH (10:30)
[2021-10-03] MEDS: ATORVASTATIN 20 MG TAB PO SCH (21:15)
[2021-10-04] VITALS (14 sets, daily range): BP systolic 103–118; BP diastolic 59–86
[2021-10-04 05:00] LABS: INR 1.33 (0.9-1.15)
[2021-10-04 05:14] LABS: Potassium 4.6 mmol/L (3.5-5.1)
[2021-10-04 05:27] LABS: BUN/Creatinine Ratio 8.4; Calcium 8.4 mg/dL (8.5-10.1)
[2021-10-04] MEDS: PANTOPRAZOLE 40 MG/10 ML VIAL INJ IV SCH (10:00)
[2021-10-04] MEDS: APIXABAN 2.5 MG TAB PO SCH ×2 (10:00→21:22)
[2021-10-04] MEDS: predniSONE 5 MG TAB PO SCH (10:00)
[2021-10-04] MEDS: NOREPINEPHRINE 8 MG/250ML KIT 250 ML IV SCH (10:42)
[2021-10-04] MEDS: Ensure Enlive Strawberry 8oz Bottle PO SCH ×2 (12:00→18:00)
[2021-10-04] MEDS: ATORVASTATIN 20 MG TAB PO SCH (21:22)
[2021-10-05] MEDS: Ensure Enlive Strawberry 8oz Bottle PO SCH ×3 (08:00→18:00)
[2021-10-05 08:46] VITALS: BP 126/89
[2021-10-05] MEDS: PANTOPRAZOLE 40 MG/10 ML VIAL INJ IV SCH (09:57)
[2021-10-05] MEDS: APIXABAN 2.5 MG TAB PO SCH ×2 (09:57→21:15)
[2021-10-05] MEDS: predniSONE 5 MG TAB PO SCH (09:57)
[2021-10-05 10:16] LABS: Basophils # (auto) 0.1 10 ^3/uL (0-0.2); Basophils % (auto) 2.6 % (0.0-2.0); Eosinophils # (auto) 0.1 10 ^3/uL (0-0.8); Eosinophils % (auto) 1.5 % (0.0-7.0); Hematocrit 36.5 % (36.0-46.0); Hemoglobin 11.5 g/dL (12.2-16.2); Lymphocytes # (auto) 0.9 10 ^3/uL (0.4-5.4); Lymphocytes % (auto) 16.6 % (10.0-50.0); Mean Corpuscular Hemoglobin 28.9 pg (28.0-32.0); Mean Corpuscular Hgb Conc. 31.4 g/dL (32.0-36.0); Mean Corpuscular Volume 92.1 fL (80.0-100.0); Monocytes # (auto) 0.8 10 ^3/uL (0-1.3); Monocytes % (auto) 13.8 % (0.0-12.0); Neutrophils # (auto) 3.7 10 ^3/uL (1.6-8.6); Neutrophils % (auto) 65.5 % (37.0-80.0); Nucleated Red Blood Cells % 0.7 %; Red Blood Cells 3.96 10^6/uL (4.0-5.20); Red Cell Distribution Width 18.3 % (11.8-14.3); White Blood Cell 5.6 10^3/uL (4.4-10.8)
[2021-10-05 10:31] LABS: INR 1.32 (0.9-1.15)
[2021-10-05 10:33] LABS: BUN/Creatinine Ratio 8.7; Calcium 8.4 mg/dL (8.5-10.1); Magnesium 2.3 mg/dL (1.6-2.6)
[2021-10-05 12:27] VITALS: BP 109/84
[2021-10-05 16:53] VITALS: BP 118/95
[2021-10-05] MEDS: ATORVASTATIN 20 MG TAB PO SCH (21:15)
[2021-10-05 22:00] VITALS: BP 125/90
[2021-10-06 05:00] VITALS: BP 127/95
[2021-10-06] MEDS ORDERED: SODIUM CHL 0.9% 1000 ML BAG XX ONE (07:00)
[2021-10-06 07:18] LABS: Hematocrit 33.9 % (36.0-46.0); Hemoglobin 10.5 g/dL (12.2-16.2)
[2021-10-06] MEDS: Ensure Enlive Strawberry 8oz Bottle PO SCH ×3 (08:00→18:00)
[2021-10-06 08:08] LABS: % Iron Saturation 96.7 % (15-50)
[2021-10-06 09:00] VITALS: BP 125/94
[2021-10-06] MEDS: predniSONE 5 MG TAB PO SCH (09:34)
[2021-10-06] MEDS: PANTOPRAZOLE 40 MG/10 ML VIAL INJ IV SCH (09:34)
[2021-10-06] MEDS: APIXABAN 2.5 MG TAB PO SCH ×2 (09:34→21:10)
[2021-10-06 12:00] VITALS: BP 104/83
[2021-10-06] MEDS ORDERED: EPOETIN ALFA-EPBX 4,000 UNIT/ML VIAL SC ONE (21:00)
[2021-10-06] MEDS: ATORVASTATIN 20 MG TAB PO SCH (21:10)
[2021-10-07] MEDS: Ensure Enlive Strawberry 8oz Bottle PO SCH ×3 (08:05→18:08)
[2021-10-07 09:00] VITALS: BP 131/70
[2021-10-07] MEDS: PANTOPRAZOLE 40 MG/10 ML VIAL INJ IV SCH (09:43)
[2021-10-07] MEDS ORDERED: dilTIAZem 120MG ER CAP PO ONE (10:30)
[2021-10-07] MEDS ORDERED: DILT-14 PO (10:34)
[2021-10-07 13:02] VITALS: BP 126/88
[2021-10-07] MEDS: APIXABAN 2.5 MG TAB PO SCH ×2 (15:56→22:59)
[2021-10-07] MEDS: predniSONE 5 MG TAB PO SCH (15:56)
[2021-10-07 17:15] VITALS: BP 114/87
[2021-10-07 22:00] VITALS: BP 123/85
[2021-10-07] MEDS: ATORVASTATIN 20 MG TAB PO SCH (22:59)
[2021-10-08 04:35] VITALS: BP 104/82
[2021-10-08] MEDS: Ensure Enlive Strawberry 8oz Bottle PO SCH ×2 (08:00→12:30)
[2021-10-08 09:21] VITALS: BP 106/75
[2021-10-08] MEDS: predniSONE 5 MG TAB PO SCH ×2 (10:01→10:33)
[2021-10-08] MEDS: APIXABAN 2.5 MG TAB PO SCH ×2 (10:01→10:33)
[2021-10-08] MEDS: PANTOPRAZOLE 40 MG/10 ML VIAL INJ IV SCH ×2 (10:03→10:09)
[2021-10-08] MEDS: dilTIAZem 120MG ER CAP PO SCH ×2 (10:08→10:34)
[2021-10-08 11:54] VITALS: BP 90/53
[2021-10-08] MEDS ORDERED: SODIUM CHL 0.9% 1000 ML BAG XX ONE (12:15)
[2021-10-08 16:22] LABS: Hematocrit 36.3 % (36.0-46.0); Hemoglobin 11.3 g/dL (12.2-16.2)
[2021-10-08 16:35] VITALS: BP 138/78
[2021-10-08] MEDS: HYDROcodone-ACET 5/325MG TAB PO PRN (17:42)
[2021-10-08] MEDS ORDERED: EPOETIN ALFA-EPBX 10,000 UNIT/1ML VIAL SC ONE (21:00)
== END 2021-10-08 18:44 | disposition hospice, home (50) | DRG 871 ==
LOC: EDBD 14:04 → ER 14:04 → TELE 18:58 → CATH ICU 10-03 00:37 → TELE-WESTW 10-04 14:48
PROVIDERS: ADMIT Hospitalist; ATTEND Internal Medicine
PROC: 5A1D70Z Performance of Urinary Filtration, Intermittent, Less than 6 Hours Per Day (ICD-10-PCS; principal; 2021-10-01)
PROC: 5A1D70Z Performance of Urinary Filtration, Intermittent, Less than 6 Hours Per Day (ICD-10-PCS; 2021-10-03)
PROC: 5A1D70Z Performance of Urinary Filtration, Intermittent, Less than 6 Hours Per Day (ICD-10-PCS; 2021-10-06)
PROC: 5A1D70Z Performance of Urinary Filtration, Intermittent, Less than 6 Hours Per Day (ICD-10-PCS; 2021-10-08)
DX: A41.9 Sepsis, unspecified organism (principal); N18.6 End stage renal disease; I21.A1 Myocardial infarction type 2; G93.41 Metabolic encephalopathy; E43 Unspecified severe protein-calorie malnutrition; I50.43 Acute on chronic combined systolic (congestive) and diastolic (congestive) heart failure; J18.9 Pneumonia, unspecified organism; I13.2 Hypertensive heart and chronic kidney disease with heart failure and with stage 5 chronic kidney disease, or end stage renal disease; T86.11 Kidney transplant rejection; Z68.1 Body mass index [BMI] 19.9 or less, adult; D68.59 Other primary thrombophilia; I48.20 Chronic atrial fibrillation, unspecified; J91.8 Pleural effusion in other conditions classified elsewhere; E87.5 Hyperkalemia; D63.8 Anemia in other chronic diseases classified elsewhere; E78.5 Hyperlipidemia, unspecified; I25.5 Ischemic cardiomyopathy; I48.0 Paroxysmal atrial fibrillation; Z20.822 Contact with and (suspected) exposure to COVID-19; E11.22 Type 2 diabetes mellitus with diabetic chronic kidney disease; K21.9 Gastro-esophageal reflux disease without esophagitis; H91.90 Unspecified hearing loss, unspecified ear; I25.10 Atherosclerotic heart disease of native coronary artery without angina pectoris; I44.7 Left bundle-branch block, unspecified; I50.82 Biventricular heart failure; Y83.0 Surgical operation with transplant of whole organ as the cause of abnormal reaction of the patient, or of later complication, without mention of misadventure at the time of the procedure; Z53.29 Procedure and treatment not carried out because of patient's decision for other reasons; Y92.89 Other specified places as the place of occurrence of the external cause; Z82.49 Family history of ischemic heart disease and other diseases of the circulatory system; Z83.3 Family history of diabetes mellitus; Z99.2 Dependence on renal dialysis; Z95.1 Presence of aortocoronary bypass graft; Z86.73 Personal history of transient ischemic attack (TIA), and cerebral infarction without residual deficits; Z79.899 Other long term (current) drug therapy; Z98.61 Coronary angioplasty status; Z90.49 Acquired absence of other specified parts of digestive tract
CPT/HCPCS: 36415; 70450; 71045; 80048; 80053; 80061; 80074; 80202; 82306; 82728; 82962; 83540; 83550; 83605; 83735; 83880; 84100; 84132; 84443; 84484; 84550; 85014; 85018; 85025; 85379; 85610; 85730; 87040; 87426; 90935; 93005; 93306; 94640; 96365; 96366; 96367; 96368; 96375; 96376; 99291; C9113; G0378; J1642; J1815; J2543; J7060; P9047